=== PATIENT | female | born 1950 | race Caucasian/White ===

== ENCOUNTER 2025-03-18 13:10 | Inpatient (IN) | payer BC, MEDICARE ==
[~2025-03-18] VITALS: Ht 175.3 cm; Wt 73.0 kg
[2025-03-18] MEDS: INSULIN LISPRO 100 UNIT/ML INSULN.PEN MULTI-DOSE SQ SCH (00:23)
[2025-03-18] MEDS: insulin glargine (Lantus) pen - multi-dose SQ SCH (00:23)
--- NOTE | 2025-03-18 13:31 | ELECTROCARDIOGRAPH REPORT ---
[facility] Test Date: 2025-03-18 Test Time: 13:30:02 Pat Name: HALIMA HARMON Department: [facility]ER Patient ID: [facility]-[id number] Room: Gender: F [employer] Director: : 1950 Requested By: CORI CHAMBERS Order Number: [id number] Reading MD: Measurements Intervals [place] Rate: 103 P: 0 VT: 0 QRS: 54 QRSD: 95 T: 5 QT: 335 QTc: 439 Interpretive Statements Atrial fibrillation Probable left ventricular hypertrophy Anterior Q waves, possibly due to LVH Borderline T abnormalities, inferior leads Please click the below link to view image of tracing.
--- NOTE | 2025-03-18 13:40 | Physician Documentation ---
History of Present Illness ~ Chief Complaint: Weakness Stated Complaint: GENERAL ILLNESS Time Seen by MD: 13:39 OK to notify your PCP?: Yes Mode of Arrival: EMS HPI 74-year-old female presents to the emergency department per EMS due to shortness of breath, weakness, leg swelling, nausea. She reports that she has a new diagnosis of congestive heart failure as of this October established at [facility]. She reports that she had a pacemaker placed at that time, and has had hospitalization, rehab stay, ER visits since that time. She reports that her most recent visit to [facility] was just last night. Medication Reconciliation Allergies: Coded Allergies: doxycycline (Verified Allergy, Severe, abdominal pain, 03/18/25) amoxicillin (Verified Allergy, Mild, abdominal pain, 03/18/25) meperidine (Verified Allergy, Mild, confusion, 03/18/25) metronidazole (Verified Allergy, Mild, hives, 03/18/25) Review of Systems ROS As stated above in the HPI, otherwise all systems are reviewed and negative. Physical Exam Vital Signs: Temperature: 98.6, Source: Temporal, Heart Rate: 102, Respiratory Rate: 20, BP: 120/85, Pulse Oximetry: 98, Weight: 76.200 Oxygen Flow Rate: 0 Physical Exam General: Alert, no apparent distress. HEENT: PERRL, EOMI, no injection, dry mucous membranes. Neck: Full range of motion. Respiratory: Lungs clear, no respiratory distress. Dim bases. Chest: No accessory muscle use. Cardiovascular: Regularly irregular rate and rhythm, no murmurs. Gastrointestinal: Soft, nontender, nondistended. Bowels sounds present. Extremities: Normal range of motion, no deformity. Neurologic: Oriented x4. Psychiatric: Normal mood and affect. Skin: Normal color, warm and dry. 2+ edema BLE with some superficial weeping areas. Progress Progress Note 1453: RN reports patient has elevated troponin of 82. 1512: Hospitalist agrees to admit patient. Results/Orders Results/Orders Orders - ARLENE LAKHANI GTA Urinalysis, Cult If Indicated (03/18/25 13:39) Chest,Single View (03/18/25 13:58) Page Hospitalist (03/18/25 ) Completed Orders - ARLENE LAKHANI GTA Cbc/Diff (03/18/25 13:39) CMP (03/18/25 13:39) Troponin (Single) (03/18/25 13:53) PBNP (03/18/25 13:53) Chest,Single View (03/18/25 13:58) Furosemide 40mg Inj (Lasix Inj) (03/18/25 14:55) Vital Signs 03/18/25 03/18/25 13:24 13:36 Temp 98.6 Pulse 102 Resp 20 20 B/P (MAP) 120/85 Pulse Ox 98 O2 Flow Rate 0 Laboratory Tests Test 03/18/25 14:12 White Blood Count 5.5 Red Blood Count 4.31 Hemoglobin 11.4 L Hematocrit 36.5 Mean Corpuscular Volume 84.7 Mean Corpuscular Hemoglobin 26.5 L Mean Corpuscular Hemoglobin Concent 31.3 L Red Cell Distribution Width 16.8 H Platelet Count 313 Mean Platelet Volume 8.2 Neutrophils (%) (Auto) 79.5 H Lymphocytes (%) (Auto) 8.1 L Monocytes (%) (Auto) 11.9 Eosinophils (%) (Auto) 0 Basophils (%) (Auto) 0.5 Neutrophils # (Auto) 4.4 Lymphocytes # (Auto) 0.4 L Monocytes # (Auto) 0.7 Eosinophils # (Auto) 0.0 Basophils # (Auto) 0.0 CBC Comment Sodium Level 136 Potassium Level 4.4 Chloride Level 96 L Carbon Dioxide Level 29.1 Anion Gap 11 Blood Urea Nitrogen 24 H Creatinine 1.53 H Estimated GFR/1.73 m2 33 BUN/Creatinine Ratio 15.7 Glucose Level 168 H Calcium Level 8.4 L Total Bilirubin 1.0 Aspartate Amino Transf (AST/SGOT) 42 H Alanine Aminotransferase (ALT/SGPT) 42 Alkaline Phosphatase 109 Troponin I High Sensitivity 82 *H Pro-B-Type Natriuretic Peptide > 45114 H Total Protein 7.2 Albumin 3.2 L Globulin 4.0 Albumin/Globulin Ratio 0.8 L Chemistry Comments EKG/XRAY/CT/US/VASC/MRI EKG : Additional Comment 1330: EKG interpreted to show afib rate of [address] segment elevation. QTC 439 ms. Chest X-Ray : Additional Comments [facility] [address], [place], [place] - [address] DIAGNOSTIC RADIOLOGY Patient: HALIMA HARMON Medical Record: [id number] [place] : 1950, Age: 74 Sex: Female Location: ER Patient Status: [facility] ER Service Date/Time: 03/18/25/ 1358 Ordering Physician: ARLENE LAKHANI NP Exam: CHEST,SINGLE VIEW CHEST RADIOGRAPH Indication: dyspnea Technique: Single frontal view of the chest was obtained COMPARISON: None FINDINGS: Lines and Tubes: Left pacemaker/ AICD with leads overlying the right atrium and right ventricle. Lungs: Pulmonary vasculature is mildly prominent. No focal consolidative opacity is seen. Pleura: No effusion. No pneumothorax. Cardiomediastinal contours: Cardiac silhouette is enlarged. Bones: Osseous degenerative changes. IMPRESSION: Cardiomegaly with mild pulmonary vascular congestion. No focal consolidation. Electronically Signed by:BLANCA PATEL MD Date & Time: 03/18/25 1409 Dictated by: BLANCA PATEL MD Dictation date and time: 03/18/25 1353 Primary Care Provider: NO PRIMARY CARE PROVIDER cc: ARLENE LAKHANI GTA ~ Medical Decision Making Additional Information This is a 74-year-old female with hx of CHF and afib who presented to the emergency department today reporting generalized weakness, nausea, shortness of breath, peripheral edema. She was found to have an elevated troponin of 82 [place] [address]. EKG showed afib without evidence of acute changes. She was given 40 mg of IV Lasix. Her chest x-ray did also show evidence of fluid volume overload, but no pneumonia. Due to her significant weakness and evidence of congestive heart failure exacerbation, she is appropriate for hospitalization and the hospitalist will be paged to evaluate her for admission. Departure Time of Disposition: 15:13 Disposition: 09 ADMITTED INPATIENT Admitted to Inpatient Unit: yes, to hospitalist Impression: Primary Impression: CHF exacerbation Referrals: NO PRIMARY CARE PROVIDER (PCP) Signature Scribe Signature: no scribe Attestation: The note accurately reflects work and decisions made by me.Arlene Null NP 03/18/25 13:54 ARLENE LAKHANI NP Mar 18, 2025 13:40
--- NOTE | 2025-03-18 14:11 | RADIOLOGY REPORT ---
CHEST RADIOGRAPH Indication: dyspnea Technique: Single frontal view of the chest was obtained COMPARISON: None FINDINGS: Lines and Tubes: Left pacemaker/ AICD with leads overlying the right atrium and right ventricle. Lungs: Pulmonary vasculature is mildly prominent. No focal consolidative opacity is seen. Pleura: No effusion. No pneumothorax. Cardiomediastinal contours: Cardiac silhouette is enlarged. Bones: Osseous degenerative changes. IMPRESSION: Cardiomegaly with mild pulmonary vascular congestion. No focal consolidation.
[2025-03-18 14:30] LABS: BASOPHILS % (AUTO) 0.5 % (0-1); EOSINOPHILS % (AUTO) 0 % (0-6); HEMATOCRIT 36.5 % (35.0-45.0); HEMOGLOBIN 11.4 g/dl (12.0-16.0); LYMPHOCYTES # (AUTO) 0.4 X10'3 (1.1-4.8); LYMPHOCYTES % (AUTO) 8.1 % (21-51); MEAN CORPUSCULAR HEMOGLOBIN 26.5 PG (27.0-31.0); MEAN CORPUSCULAR HGB CONC 31.3 g/dL (33.0-36.5); MEAN CORPUSCULAR VOLUME 84.7 FL (78-98); MEAN PLATELET VOLUME 8.2 FL (7.4-10.4); MONOCYTES # (AUTO) 0.7 X10'3 (0-0.9); MONOCYTES % (AUTO) 11.9 % (2-12); NEUTROPHILS # (AUTO) 4.4 X10'3 (1.8-7.7); NEUTROPHILS % (AUTO) 79.5 % (42-75); PLATELET COUNT 313 X10'3 (140-440); RED BLOOD COUNT 4.31 X10'6 (4.20-5.60); RED CELL DISTRIBUTION WIDTH 16.8 % (11.5-14.5); WHITE BLOOD COUNT 5.5 X10'3 (4.5-11.0)
[2025-03-18 14:43] LABS: ALANINE AMINOTRANSFERASE 42 U/L (12-78); ALBUMIN 3.2 G/DL (3.4-5.0); ALBUMIN/GLOBULIN RATIO 0.8 (1.1-1.5); ALKALINE PHOSPHATASE 109 IU/L (46-116); ANION GAP 11 (8-16); ASPARTATE AMINO TRANSFERASE 42 U/L (10-37); BLOOD UREA NITROGEN 24 MG/DL (7-18); BUN/CREATININE RATIO 15.7 (10.0-20.0); CALCIUM 8.4 MG/DL (8.5-10.1); CHLORIDE 96 MMOL/L (99-107); CREATININE 1.53 MG/DL (0.40-0.90); GLUCOSE 168 MG/DL (70-104); POTASSIUM 4.4 MMOL/L (3.5-5.1); SODIUM 136 MMOL/L (135-145); TOTAL CARBON DIOXIDE 29.1 MMOL/L (24-32); TOTAL PROTEIN 7.2 G/DL (6.4-8.2); eCRCL 33 ML/MIN; eGFR 33 ML/MIN
[2025-03-18 14:51] LABS: PRO BRAIN NATRIURETIC PEPTIDE > 30000 PG/ML (0-450)
[2025-03-18] MEDS ORDERED: magnesium sulf-water 2g/50mL 50 ML IV PRN (15:10)
[2025-03-18] MEDS ORDERED: magnesium Cl slow-release 64mg tablet PO PRN (15:10)
[2025-03-18] MEDS ORDERED: HYDROmorphone inj. 0.5 MG/0.5 ML DISP.SYRIN IV PRN (15:10)
[2025-03-18] MEDS ORDERED: HYDROcodone/acetaminophen 10/325mg tab PO PRN (15:10)
[2025-03-18] MEDS ORDERED: morphine 2 MG/ML inj. syringe IV PRN ×2 (15:10)
[2025-03-18] MEDS ORDERED: potassium Cl 20 mEq SR tablet PO PRN (15:10)
[2025-03-18] MEDS ORDERED: magnesium sulf-water 4G/100mL 100 ML IV PRN (15:10)
[2025-03-18] MEDS ORDERED: potassium Cl 40MEQ/1/2NS 520ml 520 ML IV PRN (15:10)
[2025-03-18] MEDS ORDERED: mag hydrox/Alum hydrox/simeth 30ml oral suspension PO PRN (15:10)
[2025-03-18] MEDS ORDERED: magnesium hydroxide 30ml (MOM) UD suspension PO PRN (15:10)
[2025-03-18] MEDS ORDERED: acetaminophen 325mg tablet PO PRN (15:10)
[2025-03-18] MEDS ORDERED: bisacodyl 10mg suppository rectal RC PRN (15:10)
[2025-03-18] MEDS ORDERED: HYDROcodone/acetaminophen 5mg/325mg tablet PO PRN (15:10)
[2025-03-18] MEDS ORDERED: ondansetron/PF 4mg/2ml inj IV PRN (15:10)
[2025-03-18] MEDS ORDERED: ampicill/sulbac 1.5gm/NS 100ml 100 ML IV SCH (15:20)
[2025-03-18] MEDS: metoprolol tartrate 1mg/ml inj IV SCH (15:20)
[2025-03-18] MEDS: ipratropium/albuterol 3ml nebule NEB SCH (15:20)
[2025-03-18] MEDS: furosemide 40mg/4ml inj IV ONE (15:59)
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
[2025-03-18 16:22] LABS: MAGNESIUM 2.5 MG/DL (1.5-2.4)
[2025-03-18 16:22] LABS: APTT 24 SECONDS (22-32); INR 1.2 INR; PROTHROMBIN TIME 11.7 SECONDS (9.0-12.0)
[2025-03-18] MEDS ORDERED: glucagon, human recombinant 1mg kit SUBCUT PRN (16:45)
[2025-03-18] MEDS ORDERED: dextrose 50%-water 50ml dispensing syringe IV PRN ×2 (16:45)
[2025-03-18] MEDS ORDERED: DEXTROSE 15 GM of carb/4 tabs (each vial/BOTTLE has 4 tablets) PO PRN ×2 (16:45)
[2025-03-18] MEDS ORDERED: LEVO75CA6 PO (17:02)
[2025-03-18] MEDS ORDERED: NAPR-56 PO (17:02)
[2025-03-18] MEDS ORDERED: MAGN250T11 PO (17:02)
[2025-03-18] MEDS ORDERED: SPIR25TA5 PO (17:02)
[2025-03-18] MEDS ORDERED: ASPI-1264 PO (17:02)
[2025-03-18] MEDS ORDERED: FURO-150 PO (17:02)
[2025-03-18] MEDS ORDERED: UBID100C16 PO (17:02)
[2025-03-18] MEDS ORDERED: deltasone PO (17:02)
[2025-03-18] MEDS ORDERED: METO-539 PO (17:02)
[2025-03-18] MEDS ORDERED: AZIT-164 PO (17:02)
[2025-03-18] MEDS ORDERED: VITA0.4T18 (17:02)
[2025-03-18] MEDS ORDERED: BISM-155 PO (17:02)
[2025-03-18] MEDS ORDERED: DIPH25CA83 PO (17:02)
[2025-03-18] MEDS ORDERED: CYCL-394 PO (17:02)
[2025-03-18] MEDS ORDERED: EMPA10TA PO (17:14)
[2025-03-18] MEDS ORDERED: SACU1TAB PO (17:14)
[2025-03-18] MEDS ORDERED: APIX5TAB3 PO (17:14)
[2025-03-18] MEDS ORDERED: CEPH-585 PO (17:14)
[2025-03-18] MEDS: guaiFENesin ER 600mg tablet PO SCH (17:53)
[2025-03-18] MEDS: azithromycin 250mg tablet PO SCH (17:54)
[2025-03-18] MEDS: ceFAZolin/D5W- 1GM premix 50 ML IV SCH (18:16)
[2025-03-18 19:02] LABS: TOTAL PROTEIN,URINE RANDOM 85.6 MG/DL
[2025-03-18 19:03] VITALS: PULSE 63; RESP 15; O2SAT 93
[2025-03-18 19:06] LABS: URINE AMPHETAMINE SCREEN NEGATIVE (Neg); URINE BARBITUATE SCREEN NEGATIVE (Neg); URINE BENZODIAZEPINES SCREEN NEGATIVE (Neg); URINE CANNABINOID SCREEN POSITIVE (Neg); URINE COCAINE SCREEN NEGATIVE (Neg); URINE METHADONE SCREEN NEGATIVE (Neg); URINE OPIATE SCREEN NEGATIVE (Neg); URINE PHENCYCLIDINE SCREEN NEGATIVE (Neg)
[2025-03-18 19:09] VITALS: PULSE 77; RESP 16
[2025-03-18 19:10] LABS: BILIRUBIN,URINE NEGATIVE (Neg); CLARITY,URINE CLEAR (Clear); COLOR,URINE YELLOW (Yellow); GLUCOSE, URINE NEGATIVE (Neg); KETONES,URINE NEGATIVE (Neg); LEUKOCYTE ESTERASE ,URINE NEGATIVE (Neg); NITRITES, URINE NEGATIVE (Neg); OCCULT BLOOD,URINE NEGATIVE (Neg); PROTEIN,URINE 30 mg/dl (Neg); UROBILINOGEN,URINE 0.2 E.U/dL (0.2-1.0)
[2025-03-18 19:19] LABS: UA COLLECTION TYPE CLN CATCH MIDSTREAM
[2025-03-18 19:24] LABS: RBC,URINE NONE SEEN /HPF (0-2); WBC,URINE 0-4 /HPF (0-4)
[2025-03-18 19:25] LABS: BACTERIA,URINE NONE SEEN /HPF (Neg); SQUAMOUS EPITHELIAL CELL,UR FEW /LPF (FEW)
[2025-03-18] MEDS ORDERED: heparin, porcine 5000 units/ml vial SQ SCH (20:00)
[2025-03-18 20:39] LABS: C-REACTIVE PROTEIN 2.46 MG/DL (0.0-0.5)
[2025-03-18 20:58] LABS: UA EOSINOPHILS NO EOS /HPF
[2025-03-18] MEDS ORDERED: iohexol 350MG/ML 100ml bottle IV ONE (21:09)
[2025-03-18 22:00] VITALS: BP 70/45; PULSE 66; RESP 15; TEMP 98.3; O2SAT 96
--- NOTE | 2025-03-18 23:00 | RADIOLOGY REPORT ---
Procedure: CT CTA AORTA DISECTION W/ IV CONTRAST HISTORY: Chest pain, abdominal pain, bilateral upper arm blood pressures discrepancy Comparison Study: None Exam Date:03/18/2025 09:57 PM TECHNIQUE: volumetric data acquisition of abdomen and pelvis was obtained with .6 mm collimation following intra venous administration of intravenous 100 ml of Isovue 370 without any reported adverse effects. 1.5 a nd 3 mm axial images were reconstructed and additional sagittal and coronal images were reformatted. Precontrast and arterial phase imaging were performed. Images were reviewed on [facility] PACS. Postproce ssing was also performed on a Separate workstation. 3D images were performed on a dedicated workstation and reviewed for reporting. Radiation Dose : CT Dose: CTDI volume is 18 mGy. Dose-length product is 1283 mGy*cm FINDINGS: Vascular: The pulmonary trunk measures 3.3 cm with associated mild dilation of the left and right main pulmonar y arteries. Severe calcification of the origin of the left subclavian artery arising from the aortic arch concerning for greater than 50% stenosis. Moderate to severe calcification of the origin of the celiac axis, SMA, and bilateral renal arteries. The LUCY is patent. No evidence of aortic dissection o r aneurysm. Chest: Mild cardiomegaly. Severe calcification of the coronary vessels. Left-sided cardiac device wi th intact leads. Abdomen/pelvis: Limited evaluation due to arterial phase contrast enhancement. Findings suggestive of possible distended gallbladder with pericholecystic free fluid. Mild pneumobilia with scattered foci of air within the gallbladder. Mild free fluid in the pelvis. Moderate diffuse anasarca. IMPRESSION: No evidence of acute aneurysm, dissection, or intramural hematoma. Findings suggestive of pulmonary hypertension. Mild cardiomegaly. Greater than 50% stenosis at the proximal left subclavian artery. Mildly distended gallbladder with adjacent free fluid. There is mild pneumobilia. Consider further ev aluation with ultrasound. END IMPRESSION:
[2025-03-18] MEDS: normal saline 500ml IV soln 500 ML IV SCH (23:54)
[2025-03-19] VITALS (12 sets, daily range): BP systolic 70–154; BP diastolic 37–68; PULSE 58–89; RESP 15–24; TEMP 97–98.2; O2SAT 93–98
[2025-03-19] MEDS: sacubitril/valsartan 24mg-26mg tablet PO SCH (00:03)
[2025-03-19] MEDS: apixaban 2.5mg tablet PO SCH (00:05)
[2025-03-19] MEDS: furosemide 40mg/4ml inj IV SCH (00:05)
[2025-03-19] MEDS: docusate sod 100mg capsule PO SCH (00:06)
[2025-03-19] MEDS: cyclobenzaprine 10mg tablet PO ONE (00:27)
[2025-03-19 05:15] LABS: BASOPHILS % (AUTO) 0.8 % (0-1); EOSINOPHILS % (AUTO) 0.1 % (0-6); HEMATOCRIT 33.5 % (35.0-45.0); HEMOGLOBIN 10.9 g/dl (12.0-16.0); LYMPHOCYTES # (AUTO) 0.6 X10'3 (1.1-4.8); LYMPHOCYTES % (AUTO) 11.6 % (21-51); MEAN CORPUSCULAR HEMOGLOBIN 26.8 PG (27.0-31.0); MEAN CORPUSCULAR HGB CONC 32.4 g/dL (33.0-36.5); MEAN CORPUSCULAR VOLUME 82.6 FL (78-98); MONOCYTES # (AUTO) 0.9 X10'3 (0-0.9); MONOCYTES % (AUTO) 17.4 % (2-12); NEUTROPHILS # (AUTO) 3.4 X10'3 (1.8-7.7); NEUTROPHILS % (AUTO) 70.1 % (42-75); PLATELET COUNT 266 X10'3 (140-440); RED BLOOD COUNT 4.06 X10'6 (4.20-5.60); RED CELL DISTRIBUTION WIDTH 16.9 % (11.5-14.5); WHITE BLOOD COUNT 4.9 X10'3 (4.5-11.0)
[2025-03-19 05:25] LABS: D-DIMER 3.38 MG/L FEU (0-0.50)
[2025-03-19 05:34] LABS: ALANINE AMINOTRANSFERASE 52 U/L (12-78); ALBUMIN 2.8 G/DL (3.4-5.0); ALBUMIN/GLOBULIN RATIO 0.8 (1.1-1.5); ALKALINE PHOSPHATASE 90 IU/L (46-116); ANION GAP 8 (8-16); ASPARTATE AMINO TRANSFERASE 71 U/L (10-37); BILIRUBIN,TOTAL 0.8 MG/DL (0.1-1.0); BLOOD UREA NITROGEN 25 MG/DL (7-18); BUN/CREATININE RATIO 16.9 (10.0-20.0); CALCIUM 8.1 MG/DL (8.5-10.1); CHLORIDE 97 MMOL/L (99-107); CHOL/HDL RATIO 3.5 (0.00-4.99); CHOLESTEROL 123 MG/DL (0-200); CREATININE 1.48 MG/DL (0.40-0.90); GLUCOSE 121 MG/DL (70-104); HDL CHOLESTEROL 35 MG/DL (35-60); LDL CHOLESTEROL 71 MG/DL (50-100); MAGNESIUM 2.3 MG/DL (1.5-2.4); POTASSIUM 3.3 MMOL/L (3.5-5.1); SODIUM 135 MMOL/L (135-145); TOTAL CARBON DIOXIDE 29.7 MMOL/L (24-32); TOTAL PROTEIN 6.4 G/DL (6.4-8.2); TRIGLYCERIDES 93 MG/DL (20-135); eCRCL 34 ML/MIN; eGFR 34 ML/MIN
[2025-03-19 05:54] LABS: NUCLEATED RED BLOOD CELLS 1 /100WBC (0-0); TOTAL CELLS COUNTED 100
[2025-03-19 05:55] LABS: PLATELET ESTIMATE NORMAL
[2025-03-19 05:56] LABS: LARGE PLATELETS MODERATE
[2025-03-19] MEDS: EMPAGLIFLOZIN 10 MG TABLET PO SCH (07:43)
[2025-03-19] MEDS: metoprolol succinate 25mg (24-HOUR) SR. Tablet PO SCH (07:43)
[2025-03-19] MEDS: spironolactone 25 MG tablet PO SCH (07:44)
[2025-03-19] MEDS: potassium Cl 20 mEq SR tablet PO PRN (07:52)
[2025-03-19] MEDS: K and/or MAG REPLACEMENT MC SCH (08:07)
--- NOTE | 2025-03-19 09:22 | RADIOLOGY REPORT ---
INDICATION: ERNESTO TECHNIQUE: Multiple real-time sonographic images of the kidneys and bladder were obtained. COMPARISON: None FINDINGS: The right kidney measures 9.6 cm in length, which is normal in size. There is normal echoge nicity of the right kidney. No hydronephrosis. The left kidney measures 9.5 cm in length, which is normal in size. There is normal echogenicity of t he left kidney. No hydronephrosis. No large intraluminal masses are seen in the bladder. IMPRESSION: 1. Normal sonographic appearance of the kidneys. No hydronephrosis.
--- NOTE | 2025-03-19 11:20 | VASCULAR REPORT ---
Bilateral lower extremity venous duplex Clinical History: Lower extremity edema Comparison: None Technique: Duplex Doppler evaluation of the deep venous systems of both lower extremities from the common femora l veins to the popliteal veins including color Doppler and spectral/pulsed waveform analysis was perf ormed. Findings: RIGHT SIDE: The common femoral vein demonstrates appropriate compressibility and waveform variability. There is compressibility/patency of the great saphenous vein at the proximal thigh. The femoral vein demonstrates appropriate compressibility and waveform variability. The deep femoral vein demonstrates appropriate compressibility and waveform variability. The popliteal vein demonstrates appropriate compressibility and waveform variability. There is normal compressibility at the tibioperoneal trunk. LEFT SIDE: The common femoral vein demonstrates appropriate compressibility and waveform variability. There is compressibility/patency of the great saphenous vein at the proximal thigh. The femoral vein demonstrates appropriate compressibility and waveform variability. The deep femoral vein demonstrates appropriate compressibility and waveform variability. The popliteal vein demonstrates appropriate compressibility and waveform variability. There is normal compressibility at the tibioperoneal trunk. Peroneal veins and posterior tibial veins are suboptimally visualized. Impression: No right or left femoropopliteal venous thrombosis.
[2025-03-19] MEDS: predniSONE 20 mg tablet PO SCH (12:59)
--- NOTE | 2025-03-19 17:47 | CARDIOLOGY REPORT ---
APPROVED REPORT EXAM: Comprehensive 2D, Doppler, and color-flow Echocardiogram. Patient Location: FT Blood Pressure: 100/61 mmHg Heart Rate: 79-95 bpm Rhythm: ATRIAL FIBRILLATION Indications CONGESTIVE HEART FAILURE ELEVATED PROBNP (>30,000) HS TROPONIN 82 ATRIAL FIBRILLATION HFrEF - 30% PACEMAKER 11/2024 COPD Quality Assurance Qa Lab Technician: Niraj Van, Previous echo: none 2D Dimensions RVDd 4.5 cm LA Diam7.8 cm IVSd 0.9 (0.7-1.1cm) LVDd 5.4 cm PWd 1.1 (0.7-1.1cm) IVSs 1.1 (0.8-1.2cm) LVDs 4.5 (2.5-4.0cm) PWs 1.7 (0.8-1.2cm) LVOT Diameter 2.14 (1.8-2.4cm) LVEF(%) 22.5 (>50%) IVC 26.65 mmFS (%) 15.5 % SV 45.3 ml CO 3.5 L/min M-Mode Dimensions Left Atrium(MM) 5.02 (2.5-4.0cm) Aortic Root 2.78 (2.2-3.7cm) Aortic Cusp Exc 1.79 (1.5-2.0cm) Biplane 2D LA Volumes LA ESV Index 60.29 mL/m2 Aortic Valve AoV Peak Lorenzo. 123.3 cm/s AoV VTI 17.7 cm AO Peak GR. 6.1 mmHg AO Mean GR. 3 mmHg LVOT VTI 10.92 cm LVOT Peak Lorenzo. 77.9 cm/s RAHUL(VTI)/BSA 2.22 cm2/m2 RAHUL (VTI) 2.22 cm2 Mitral Valve MV Peak Gr. 4 mmHg MV PHT 44 ms MVA (PHT) 5.00 cm2 MV SDui689.0 cm/s Tricuspid Valve TR P. Velocity 369 cm/s RAP ESTIMATE 10 mmHg TR Peak Gr. 54 mmHg RVSP 64 mmHg LEFT VENTRICLE Normal LV size and wall thickness. Overall systolic function is severely reduced. Multisegmental wall motion abnormalities. LVEF is 20-25%. RIGHT VENTRICLE RV is moderately dilated with reduced systolic function. RVSP is estimated at 64 mmHg. Pacemaker wire in right heart. ATRIA Left atrium is severely dilated. Right atrium is severely dilated. AORTIC VALVE Trileaflet AV appears mildly sclerotic without stenosis. Trace insufficiency. MITRAL VALVE Moderate MV annular calcification without stenosis. Mild regurgitation. TRICUSPID VALVE TV appears structurally normal with moderate regurgitation. PULMONIC VALVE Normal PV without stenosis, physiologic insufficiency. GREAT VESSELS The aortic root is normal in size. IVC is dilated and collapses less than 50% with inspiration. PERICARDIUM Normal pericardium. No effusion. Other Information Study Quality: Adequate Conclusion Normal LV size and wall thickness. Overall systolic function is severely reduced. Multisegmental wall motion abnormalities. LVEF is 20-25%. RV is moderately dilated with reduced systolic function. RVSP is estimated at 64 mmHg. Pacemaker wire in right heart. Left atrium is severely dilated. Right atrium is severely dilated. Trileaflet AV appears mildly sclerotic without stenosis. Trace insufficiency. Moderate MV annular calcification without stenosis. Mild regurgitation. TV appears structurally normal with moderate regurgitation. Normal pericardium. No effusion.
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
--- NOTE | 2025-03-19 19:55 | PROGRESS NOTE- Residence ---
Progress Note - Resident Providers to CC Resident Creating Document: CHELYTISH CHAUDHARY, ADRIANNA ~ Antibiotic Timeout Antibiotic Ordered?: Yes Subjective Patient was seen and examined the bedside. Patient has refused her breathing treatments and is very noncompliant with her medications being not able to afford and also not motivated to take medications regularly. Started on steroid. Discontinued Entresto and started on Jardiance by cardiology recommendations. Objective Vital Signs Date Time Temp Pulse Resp B/P (MAP) Pulse Ox O2 Delivery O2 Flow Rate FiO2 03/19/25 15:00 97.0 62 22 154/68 (96) 93 Room Air 03/19/25 12:36 0 21 Result Diagram: 03/19/25 0451 03/19/25 0451 General: Alert, awake and oriented no apparent distress. HEENT: PERRL, EOMI, no injection, dry mucous membranes. Neck: Full range of motion. Respiratory: Bilateral crackles heard on examination, severe wheezing, decreased air entry Chest: No accessory muscle use. Cardiovascular: irregular rate and rhythm, no murmurs. Gastrointestinal: Soft, nontender, nondistended. Bowels sounds present. Extremities: Normal range of motion, no deformity. Neurologic: Oriented x4. Psychiatric: Anxious mood and affect. Skin: Reddish discoloration of bilateral feet, warm and dry. 2+ edema BLE with some superficial weeping areas covered with Band-Aids. Coagulation Studies Laboratory Tests Test 03/18/25 16:01 03/19/25 04:51 Prothrombin Time 11.7 SECONDS (9.0-12.0) INR International Normalized Ratio 1.2 INR Activated Partial Thromboplast Time 24 SECONDS (22-32) Coagulation Comments D-Dimer 3.38 MG/L FEU (0-0.50) H D-Dimer Comment Assessment Assessment This is a 74-year-old female with history of CHFrEF, atrial fibrillation s/p ICD placement, CKD, COPD, celiac disease presents to the ED after being recently discharged from [facility] with a chief complaint of weakness and shortness of breath with exertion. She also has orthopnea, PND, cough, shortness of breath with minimal exertion and edema in the legs. She also gets chest pains never then and her last episode of chest pain was three days ago. She also has palpitations but denies any syncopal episodes, fever. Patient mentions that she was diagnosed with heart failure in October of this year and was started on Lasix and other heart failure medications because his her ejection fraction was only 30%. She was also prescribed compression stockings then. Later in November she underwent pacemaker placement. She mentions that she has been not fully compliant with her medications because Lasix makes her dizzy and Eliquis makes her bleed easily. She used to follow Dr. eagle who was her industrial insulator for about two months after which she lost follow up due to insurance issues. She does not have a primary care physician. She lives in [place] in [facility] and is currently homeless but sometimes lives in her girlfriend's property. Plan Plan Acute on chronic CHF exacerbation with reduced ejection fraction Type 2 FL secondary to above Lactic acidosis, resolved [place] [address]. One dose of Lasix IV 40 mg given in the ED. Chest x-ray shows cardiomegaly with pulmonary congestion. Clinically patient house bilateral lower extremity edema and decreased air entry in bilateral lung bahena, crackles. EKG ultrasound borderline T-wave changes and Q-waves. Continue trending troponins. Check lipid panel and A1c. Echocardiogram ordered. Follow up Started on Lasix 40 mg b.i.d. held due to lactic acidosis and dehydration, continue home medications spironolactone 25 mg p.o. daily, metoprolol 25 mg p.o. daily, Jardiance 10 mg daily. Not starting on YU inhibitors to prevent hypotension. Heart healthy and sodium restricted diet. Lactic acidosis is likely secondary to hypoxia and cellulitis. Lactic acid normalized with IV fluids. 03/19/2025:Discontinued Entresto and started on Jardiance based on cardiology recommendations. COPD exacerbation History of long-term tobacco use Patient has bilateral wheezing on examination. She also has cough with sputum production. Started on DuoNebs q.4 scheduled on duo nebs q.2h p.r.n. three day course of azithromycin, day one. Patient is also on cefazolin for cellulitis which will also cover possible lung infection. Mucinex 1.2 g b.i.d. started on prednisone 40 mg once daily Atrial fibrillation with RVR EKG shows atrial fibrillation with heart rate in 100-110 bpm. Check TSH. Received 5 mg of IV metoprolol t.i.d. Q 15 minutes part Started on home medication metoprolol 25 mg p.o. daily. Started on Eliquis 5 mg b.i.d. however patient refused due to patient's propensity to bleed easily. 03/19/2025: Tele monitoring shows paced rhythm, atrial flutter underlying rhythm Left subclavian artery stenosis Patient has low blood pressure in her left arm and due to differential blood pressure CTA was done to rule out aortic dissection. Aortic dissection was ruled out but left subclavian artery shows greater than 50% stenosis. Blood pressures need to be checked only in the right arm for accurate measurements. CKD, unknown baseline Creatinine is 1.5, patient mentions that she was told she has kidney problems prior. Monitor kidney function slowly as the patient is on multiple medications such as Entresto, Jardiance, spironolactone which may increase the potassium and worsening kidney function. Hold the above medications if kidney function worsens Cellulitis Started on Ancef Q eight scheduled. New onset diabetes A1c 6.5. Blood sugars 168. Started on hyperglycemia protocol with low-dose supplemental insulin History of hypothyroidism History of celiac disease Restart home medication levothyroxine after med rec. Consult nutrition for gluten free diet Code Status: Full code DVT Prophylaxis: Eliquis Analgesia/Sedation: Tylenol p.r.n. Lines/Tubes: PIV Gi Prophylaxis: None Nutrition: Heart healthy, sodium restricted, gluten free diet PT: Yes Prognosis: Guarded Disposition: Continue care in PCU Tish Chaudhary MD Internal Medicine Resident PGY-1 Date of Service: Mar 19, 2025 Billing Provider: FRANCY CANO MD Common Visit Codes: [id number] INP/OBS CARE(HIGH) TISH MO, RES Mar 19, 2025 19:55 FRANCY CANO MD Mar 23, 2025 00:11
[2025-03-19] MEDS: apixaban 5mg tablet PO SCH (20:19)
[2025-03-20] VITALS (17 sets, daily range): BP systolic 110–150; BP diastolic 38–68; PULSE 63–88; RESP 16–25; TEMP 97.2–98.6; O2SAT 96–100
[2025-03-20 06:54] LABS: BASOPHILS % (AUTO) 0.2 % (0-1); EOSINOPHILS % (AUTO) 0 % (0-6); HEMATOCRIT 34.3 % (35.0-45.0); HEMOGLOBIN 10.9 g/dl (12.0-16.0); LYMPHOCYTES # (AUTO) 0.5 X10'3 (1.1-4.8); LYMPHOCYTES % (AUTO) 13.2 % (21-51); MEAN CORPUSCULAR HEMOGLOBIN 26.7 PG (27.0-31.0); MEAN CORPUSCULAR HGB CONC 31.8 g/dL (33.0-36.5); MONOCYTES # (AUTO) 0.6 X10'3 (0-0.9); MONOCYTES % (AUTO) 13.8 % (2-12); NEUTROPHILS % (AUTO) 72.8 % (42-75); PLATELET COUNT 254 X10'3 (140-440); RED BLOOD COUNT 4.08 X10'6 (4.20-5.60); RED CELL DISTRIBUTION WIDTH 16.7 % (11.5-14.5); WHITE BLOOD COUNT 4.1 X10'3 (4.5-11.0)
[2025-03-20 07:11] LABS: ALANINE AMINOTRANSFERASE 47 U/L (12-78); ALBUMIN 2.9 G/DL (3.4-5.0); ALBUMIN/GLOBULIN RATIO 0.8 (1.1-1.5); ALKALINE PHOSPHATASE 88 IU/L (46-116); ANION GAP 11 (8-16); ASPARTATE AMINO TRANSFERASE 64 U/L (10-37); BILIRUBIN,TOTAL 0.5 MG/DL (0.1-1.0); BLOOD UREA NITROGEN 29 MG/DL (7-18); BUN/CREATININE RATIO 17.9 (10.0-20.0); CALCIUM 8.3 MG/DL (8.5-10.1); CHLORIDE 96 MMOL/L (99-107); CREATININE 1.62 MG/DL (0.40-0.90); GLUCOSE 166 MG/DL (70-104); MAGNESIUM 2.6 MG/DL (1.5-2.4); POTASSIUM 4.4 MMOL/L (3.5-5.1); SODIUM 134 MMOL/L (135-145); TOTAL CARBON DIOXIDE 27.1 MMOL/L (24-32); TOTAL PROTEIN 6.5 G/DL (6.4-8.2); eCRCL 31 ML/MIN; eGFR 31 ML/MIN
[2025-03-20] MEDS: JUVEN Smoothie Arginine/Glut./Ca2+Bmb (Juven 19.3pkt) 240ml cup PO SCH (07:30)
[2025-03-20] MEDS: aspirin 81mg, enteric-coated 1 TAB TABLET.DR PO SCH (08:00)
[2025-03-20] MEDS: EMPAGLIFLOZIN 10 MG TABLET PO SCH (08:00)
[2025-03-20] MEDS: atorvastatin 20mg tablet PO SCH (08:00)
[2025-03-20] MEDS: normal saline 1000ml 1,000 ML IV SCH (08:10)
[2025-03-20] MEDS: losartan 25mg tablet PO SCH (09:15)
[2025-03-20] MEDS ORDERED: benzonatate 100mg capsule PO PRN (10:15)
--- NOTE | 2025-03-20 18:27 | PROGRESS NOTE- Residence ---
Progress Note - Resident Providers to CC Resident Creating Document: CHELYTISH CHAUDHARY, RES ~ Antibiotic Timeout Antibiotic Ordered?: Yes Subjective Patient was seen and examined the bedside. Patient continues to have wheezing. Discussed with case management about the requirement of LifeVest. Case management had made the arrangements. Patient agrees to try LifeVest. She is also noncompliant with the breathing treatments but received a few. Patient also refused physical therapy evaluation. Objective Vital Signs Date Time Temp Pulse Resp B/P (MAP) Pulse Ox O2 Delivery O2 Flow Rate FiO2 03/20/25 15:29 97.4 70 18 144/53 (83) 96 Room Air 03/20/25 15:08 0.0 03/20/25 15:03 21 Result Diagram: 03/20/25 0632 03/20/25 0621 General: Alert, awake and oriented no apparent distress. HEENT: PERRL, EOMI, no injection, dry mucous membranes. Neck: Full range of motion. Respiratory: Bilateral crackles heard on examination, severe wheezing, decreased air entry Chest: No accessory muscle use. Cardiovascular: irregular rate and rhythm, no murmurs. Gastrointestinal: Soft, nontender, nondistended. Bowels sounds present. Extremities: Normal range of motion, no deformity. Neurologic: Oriented x4. Psychiatric: Anxious mood and affect. Skin: Reddish discoloration of bilateral feet, warm and dry. 2+ edema BLE with some superficial weeping areas covered with Band-Aids. Coagulation Studies Laboratory Tests Test 03/18/25 16:01 03/19/25 04:51 Prothrombin Time 11.7 SECONDS (9.0-12.0) INR International Normalized Ratio 1.2 INR Activated Partial Thromboplast Time 24 SECONDS (22-32) Coagulation Comments D-Dimer 3.38 MG/L FEU (0-0.50) H D-Dimer Comment Assessment Assessment This is a 74-year-old female with history of CHFrEF, atrial fibrillation s/p ICD placement, CKD, COPD, celiac disease presents to the ED after being recently discharged from [facility] with a chief complaint of weakness and shortness of breath with exertion. She also has orthopnea, PND, cough, shortness of breath with minimal exertion and edema in the legs. She also gets chest pains never then and her last episode of chest pain was three days ago. She also has palpitations but denies any syncopal episodes, fever. Patient mentions that she was diagnosed with heart failure in October of this year and was started on Lasix and other heart failure medications because his her ejection fraction was only 30%. She was also prescribed compression stockings then. Later in November she underwent pacemaker placement. She mentions that she has been not fully compliant with her medications because Lasix makes her dizzy and Eliquis makes her bleed easily. She used to follow Dr. eagle who was her stna for about two months after which she lost follow up due to insurance issues. She does not have a primary care physician. She lives in [place] in [facility] and is currently homeless but sometimes lives in her girlfriend's property. Plan Plan Acute on chronic CHF exacerbation with reduced ejection fraction Type 2 DE secondary to above Lactic acidosis, resolved [place] [address]. One dose of Lasix IV 40 mg given in the ED. Chest x-ray shows cardiomegaly with pulmonary congestion. Clinically patient house bilateral lower extremity edema and decreased air entry in bilateral lung bahena, crackles. EKG ultrasound borderline T-wave changes and Q-waves. Continue trending troponins. Check lipid panel and A1c. Echocardiogram ordered. Follow up Started on Lasix 40 mg b.i.d. which has been held now due to lactic acidosis and dehydration, continue home medications spironolactone 25 mg p.o. daily, metoprolol 25 mg p.o. daily, Jardiance 10 mg daily. Not starting on YU inhibitors to prevent hypotension. Heart healthy and sodium restricted diet. Lactic acidosis is likely secondary to hypoxia and cellulitis. Lactic acid normalized with IV fluids. 03/19/2025:Discontinued Entresto and started on Jardiance based on cardiology recommendations. 03/20/2025: Currently on IV fluids NS at the rate of 50 mL/hour for ERNESTO. Missed a few breathing treatments but got a few breathing treatments. She is agreeable to LifeVest. COPD exacerbation History of long-term tobacco use Patient has bilateral wheezing on examination. She also has cough with sputum production. Started on DuoNebs q.4 scheduled on duo nebs q.2h p.r.n. three day course of azithromycin, day one. Patient is also on cefazolin for cellulitis which will also cover possible lung infection. Mucinex 1.2 g b.i.d. started on prednisone 40 mg once daily Atrial fibrillation with RVR EKG shows atrial fibrillation with heart rate in 100-110 bpm. Check TSH. Received 5 mg of IV metoprolol t.i.d. Q 15 minutes part Started on home medication metoprolol 25 mg p.o. daily. Started on Eliquis 5 mg b.i.d. however patient refused due to patient's propensity to bleed easily. 03/19/2025: Tele monitoring shows paced rhythm, atrial flutter underlying rhythm Left subclavian artery stenosis Patient has low blood pressure in her left arm and due to differential blood pressure CTA was done to rule out aortic dissection. Aortic dissection was ruled out but left subclavian artery shows greater than 50% stenosis. Blood pressures need to be checked only in the right arm for accurate measurements. CKD, unknown baseline Creatinine is 1.5, patient mentions that she was told she has kidney problems prior. Monitor kidney function slowly as the patient is on multiple medications such as Entresto, Jardiance, spironolactone which may increase the potassium and worsening kidney function. Hold the above medications if kidney function worsens Cellulitis Started on Ancef Q eight scheduled. New onset diabetes A1c 6.5. Blood sugars 168. Started on hyperglycemia protocol with low-dose supplemental insulin History of hypothyroidism History of celiac disease Restart home medication levothyroxine after med rec. Consult nutrition for gluten free diet Code Status: Full code DVT Prophylaxis: Eliquis Analgesia/Sedation: Tylenol p.r.n. Lines/Tubes: PIV Gi Prophylaxis: None Nutrition: Heart healthy, sodium restricted, gluten free diet PT: Yes Prognosis: Guarded Disposition: Continue care in PCU. Anticipated discharge tomorrow. Tish Chaudhary MD Internal Medicine Resident PGY-1 Date of Service: Mar 20, 2025 Billing Provider: FRANCY CANO MD Common Visit Codes: [id number] INP/OBS CARE(HIGH) TISH MO, RES Mar 20, 2025 18:27 FRANCY CANO MD Mar 23, 2025 00:11
[2025-03-21] VITALS (11 sets, daily range): BP systolic 97–122; BP diastolic 58; PULSE 61–82; RESP 15–20; TEMP 98.6; O2SAT 96–99
[2025-03-21] MEDS: calcium carbonate 500mg chew tablet PO PRN (01:54)
[2025-03-21] MEDS: ipratropium/albuterol 3ml nebule NEB PRN (04:28)
[2025-03-21 10:17] LABS: BASOPHILS % (AUTO) 0.3 % (0-1); EOSINOPHILS % (AUTO) 0 % (0-6); HEMATOCRIT 34.6 % (35.0-45.0); LYMPHOCYTES # (AUTO) 0.4 X10'3 (1.1-4.8); LYMPHOCYTES % (AUTO) 7.6 % (21-51); MEAN CORPUSCULAR HEMOGLOBIN 26.5 PG (27.0-31.0); MEAN CORPUSCULAR HGB CONC 31.9 g/dL (33.0-36.5); MEAN CORPUSCULAR VOLUME 82.9 FL (78-98); MEAN PLATELET VOLUME 8.4 FL (7.4-10.4); MONOCYTES # (AUTO) 0.6 X10'3 (0-0.9); MONOCYTES % (AUTO) 10.8 % (2-12); NEUTROPHILS # (AUTO) 4.6 X10'3 (1.8-7.7); NEUTROPHILS % (AUTO) 81.3 % (42-75); PLATELET COUNT 278 X10'3 (140-440); RED BLOOD COUNT 4.17 X10'6 (4.20-5.60); RED CELL DISTRIBUTION WIDTH 16.9 % (11.5-14.5); WHITE BLOOD COUNT 5.7 X10'3 (4.5-11.0)
[2025-03-21 10:33] LABS: ALANINE AMINOTRANSFERASE 36 U/L (12-78); ALBUMIN 2.9 G/DL (3.4-5.0); ALBUMIN/GLOBULIN RATIO 0.8 (1.1-1.5); ALKALINE PHOSPHATASE 89 IU/L (46-116); ANION GAP 10 (8-16); ASPARTATE AMINO TRANSFERASE 57 U/L (10-37); BILIRUBIN,TOTAL 0.5 MG/DL (0.1-1.0); BLOOD UREA NITROGEN 39 MG/DL (7-18); BUN/CREATININE RATIO 24.8 (10.0-20.0); CALCIUM 8.9 MG/DL (8.5-10.1); CHLORIDE 98 MMOL/L (99-107); CREATININE 1.57 MG/DL (0.40-0.90); FREE T4 (FREE THYROXINE) 1.08 NG/DL (0.73-1.40); GLUCOSE 144 MG/DL (70-104); MAGNESIUM 2.7 MG/DL (1.5-2.4); POTASSIUM 4.2 MMOL/L (3.5-5.1); SODIUM 137 MMOL/L (135-145); THYROID STIMULATING HORMONE 2.31 ulU/ml (0.34-4.50); TOTAL CARBON DIOXIDE 29.1 MMOL/L (24-32); TOTAL PROTEIN 6.5 G/DL (6.4-8.2); eCRCL 32 ML/MIN; eGFR 32 ML/MIN
[2025-03-21] MEDS: ceFAZolin/D5W- 1GM premix 50 ML IV SCH (13:01)
[2025-03-21] MEDS ORDERED: LOSA50TA64 PO (14:05)
[2025-03-21] MEDS ORDERED: ALBU2.5V7 NEB (14:05)
[2025-03-21] MEDS ORDERED: FLUT1AER INH (14:05)
--- NOTE | 2025-03-21 15:45 | DISCHARGE SUMMARY-Residence ---
Discharge Summary Providers to CC Resident Creating Document: CHELYTISH JET, RES ~ Discharge Summary Admission Diagnosis: Weakness Hospital Course DATE OF ADMISSION: 03/18/2025 DATE OF DISCHARGE: 03/20/2025 Discharge Diagnosis\Comment: Acute on chronic CHF exacerbation with severely reduced ejection fraction Type 2 [place] secondary to above Lactic acidosis, resolved Acute COPD exacerbation History of long-term tobacco use Atrial fibrillation with RVR s/p pacemaker placement Left subclavian artery stenosis CKD, unknown baseline Cellulitis New onset diabetes History of hypothyroidism History of celiac disease Operations\Procedures: None Consultants: Dr. White Complications: None Condition on DC: Stable New Medications: Albuterol Sulfate (Albuterol Sulfate) 2.5 Mg/3 Ml Vial.neb 1 VIAL NEB Q4HPRN PRN for wheezing, #150 ML 0 Refills Fluticasone/Vilanterol (Breo Ellipta 100-25 Mcg INH) 100 Mcg-25 Mcg/Dose Aer.pow.ba 1 PUFFS INH DAILY for 30 Days, #1 EA 0 Refills Losartan Potassium (Losartan Potassium) 50 Mg Tablet 50 MG PO DAILY for 30 Days, #60 TAB Continued Medications: Aspirin* (Aspirin*) 325 Mg Tablet 1 TAB PO DAILY PRN for chest pain for 30 Days, #30 TAB Azithromycin (Zithromax) 250 Mg Tablet 1 TAB PO DAILY, #5 TAB Bismuth Subsalicylate (Bismuth Subsalicylate) 262 Mg Tab.chew 2 TAB PO Q6H for 14 Days, #112 TAB 0 Refills Cephalexin*Monohydrate* (Keflex*) 500 Mg Capsule 1 CAP PO Q12H for 10 Days, #20 CAP Cyclobenzaprine HCl (Cyclobenzaprine HCl) 10 Mg Tablet 1 TAB PO HS for muscle spasms for 30 Days, #30 TAB [deltasone] () 20 MEQ PO DAILY PRN for cough for 4 Days Diphenhydramine Hcl (Benadryl) 25 Mg Capsule 1 CAP PO HS for 30 Days, #30 CAP 0 Refills Empagliflozin (Jardiance) 10 Mg Tablet 1 TAB PO DAILY for 30 Days, #30 TAB 0 Refills Furosemide* (Lasix*) 20 Mg Tablet 1 TAB PO DAILY for 30 Days, #30 TAB Levothyroxine Sodium (Levothyroxine) 75 Mcg Capsule 1 TAB PO DAILY for 30 Days, #30 CAP 0 Refills Magnesium Oxide (Magnesium) 250 Mg Tablet 1 TAB PO DAILY for 30 Days, #30 TAB 0 Refills Metoprolol Succinate* (Toprol Xl*) 25 Mg Tab.sr.24h 1 TAB PO DAILY for 30 Days, #30 TAB Naproxen (Naproxen) 500 Mg Tablet 1 TAB PO Q12H, #20 TAB Spironolactone (Spironolactone) 25 Mg Tablet 0.5 TAB PO DAILY for 30 Days, #30 TAB 0 Refills Ubidecarenone (Coq-10) 100 Mg Capsule 100 MG PO, CAP Vitamin B Complex/Folic Acid (Super B Maxi Complex Caplet) 0.4 Mg Tablet Discontinued Medications: Sacubitril/Valsartan (Entresto 24 mg-26 mg Tablet) 24 Mg-26 Mg Tablet 1 TAB PO Q12H for 30 Days, #60 TAB 0 Refills Discharge Summary: History of present illness: This is a 74-year-old female with history of CHFrEF, atrial fibrillation s/p ICD placement, CKD, COPD, celiac disease presents to the ED after being recently discharged from [facility] with a chief complaint of weakness and s hortness of breath with exertion. She also has orthopnea, PND, cough, shortness of breath with minimal exertion and edema in the legs. She also gets chest pains never then and her last episode of chest pain was three days ago. She also has palpitations but denies any syncopal episodes, fever. Patient mentions that she was diagnosed with heart failure in October of this year and was started on Lasix and other heart failure medications because his her ejection fraction was only 30%. She was also prescribed compression stockings then. Later in November she underwent pacemaker placement. She mentions that she has been not fully compliant with her medications because Lasix makes her dizzy and Eliquis makes her bleed easily. She used to follow Dr. eagle who was her corrosion control fitter for about two months after which she lost follow up due to insurance issues. She does not have a primary care physician. She lives in [place] in [place] and is currently homeless but sometimes lives in her girlfriend's property. Hospital course: Acute on chronic CHF exacerbation with reduced ejection fraction. Type 2 [place] secondary to above. Lactic acidosis, resolved [place] [address]. One dose of Lasix IV 40 mg given in the ED. Chest x-ray shows cardiomegaly with pulmonary congestion. Clinically patient house bilateral lower extremity edema and decreased air entry in bilateral lung bahena, crackles. EKG ultrasound borderline T-wave changes and Q- waves. Troponins minimally elevated, down trending. Started on Lasix 40 mg b.i.d. which has been held now due to lactic acidosis and dehydration, continued home medications spironolactone 25 mg p.o. daily, metoprolol 25 mg p.o. daily, Jardiance 10 mg daily. Heart healthy and sodium restricted diet. Lactic acidosis is likely secondary to hypoxia and cellulitis. Lactic acid normalized with IV fluids. Discontinued Entresto and started on Jardiance based on cardiology recommendations. Missed a few breathing treatments but got a few breathing treatments. She is agreeable to LifeVest. COPD exacerbation. History of long-term tobacco use. Patient has bilateral wheezing on examination. She also has cough with sputum production. Started on DuoNebs q.4 scheduled on duo nebs q.2h p.r.n. three day course of azithromycin. Patient is also on cefazolin for cellulitis which will also cover possible lung infection. Mucinex 1.2 g b.i.d., started on prednisone 40 mg once daily. Atrial fibrillation with RVR. EKG shows atrial fibrillation with heart rate in 100-110 bpm. TSH within normal limits. Received 5 mg of IV metoprolol t.i.d. Q 15 minutes part Started on home medication metoprolol 25 mg p.o. daily. Started on Eliquis 5 mg b.i.d. however patient refused due to patient's propensity to bleed easily. Tele monitoring shows paced rhythm, atrial flutter underlying rhythm. Left subclavian artery stenosis. Patient has low blood pressure in her left arm and due to differential blood pressure CTA was done to rule out aortic dissection. Aortic dissection was ruled out but left subclavian artery shows greater than 50% stenosis. Blood pressures need to be checked only in the right arm for accurate measurements. CKD, unknown baseline. Creatinine is 1.5, patient mentions that she was told she has kidney problems prior. Monitor kidney function closely as the patient is on multiple medications such as Jardiance, spironolactone which may increase the potassium and worsening kidney function. Hold the above medications if kidney function worsens. Cellulitis, Started on Ancef Q eight scheduled. Consulted nutrition for gluten free diet. Physical examination at discharge: General: Alert, awake and oriented no apparent distress. HEENT: PERRL, EOMI, no injection, dry mucous membranes. Neck: Full range of motion. Respiratory: Bilateral crackles heard on examination, severe wheezing, decreased air entry Chest: Pacemaker appreciated without any signs of infection. No accessory muscle use. Cardiovascular: irregular rate and rhythm, no murmurs. Gastrointestinal: Soft, nontender, nondistended. Bowels sounds present. Extremities: Normal range of motion, no deformity. Neurologic: Oriented x4. Psychiatric: Anxious mood and affect. Skin: Reddish discoloration of bilateral feet, warm and dry. 2+ edema BLE with some superficial weeping areas covered with Band-Aids. Vital Signs Date Time Temp Pulse Resp B/P (MAP) Pulse Ox O2 Delivery O2 Flow Rate FiO2 03/21/25 15:18 70 20 Room Air 0.0 03/21/25 15:06 97 21 03/21/25 02:00 98.6 97/58 (71) Laboratory Tests Test 03/19/25 17:58 03/19/25 20:22 03/20/25 06:21 03/20/25 06:32 Glucometer 195 mg/dl 209 mg/dl Sodium Level 134 MMOL/L Potassium Level 4.4 MMOL/L Chloride Level 96 MMOL/L Carbon Dioxide Level 27.1 MMOL/L Anion Gap 11 Blood Urea Nitrogen 29 MG/DL Creatinine 1.62 MG/DL Estimated GFR/1.73 m2 31 ML/MIN BUN/Creatinine Ratio 17.9 Glucose Level 166 MG/DL Calcium Level 8.3 MG/DL Magnesium Level 2.6 MG/DL Total Bilirubin 0.5 MG/DL Aspartate Amino Transf (AST/SGOT) 64 U/L Alanine Aminotransferase (ALT/SGPT) 47 U/L Alkaline Phosphatase 88 IU/L Total Protein 6.5 G/DL Albumin 2.9 G/DL Globulin 3.6 G/DL Albumin/Globulin Ratio 0.8 Chemistry Comments White Blood Count 4.1 X10'3 Red Blood Count 4.08 X10'6 Hemoglobin 10.9 g/dl Hematocrit 34.3 % Mean Corpuscular Volume 84.0 FL Mean Corpuscular Hemoglobin 26.7 PG Mean Corpuscular Hemoglobin Concent 31.8 g/dL Red Cell Distribution Width 16.7 % Platelet Count 254 X10'3 Mean Platelet Volume 8.0 FL Neutrophils (%) (Auto) 72.8 % Lymphocytes (%) (Auto) 13.2 % Monocytes (%) (Auto) 13.8 % Eosinophils (%) (Auto) 0 % Basophils (%) (Auto) 0.2 % Neutrophils # (Auto) 3.0 X10'3 Lymphocytes # (Auto) 0.5 X10'3 Monocytes # (Auto) 0.6 X10'3 Eosinophils # (Auto) 0.0 X10'3 Basophils # (Auto) 0.0 X10'3 CBC Comment Test 03/20/25 07:38 03/20/25 12:00 03/20/25 17:33 03/20/25 22:29 Glucometer 168 mg/dl 170 mg/dl 217 mg/dl 187 mg/dl Test 03/21/25 08:25 03/21/25 09:18 Glucometer 150 mg/dl White Blood Count 5.7 X10'3 Red Blood Count 4.17 X10'6 Hemoglobin 11.0 g/dl Hematocrit 34.6 % Mean Corpuscular Volume 82.9 FL Mean Corpuscular Hemoglobin 26.5 PG Mean Corpuscular Hemoglobin Concent 31.9 g/dL Red Cell Distribution Width 16.9 % Platelet Count 278 X10'3 Mean Platelet Volume 8.4 FL Neutrophils (%) (Auto) 81.3 % Lymphocytes (%) (Auto) 7.6 % Monocytes (%) (Auto) 10.8 % Eosinophils (%) (Auto) 0 % Basophils (%) (Auto) 0.3 % Neutrophils # (Auto) 4.6 X10'3 Lymphocytes # (Auto) 0.4 X10'3 Monocytes # (Auto) 0.6 X10'3 Eosinophils # (Auto) 0.0 X10'3 Basophils # (Auto) 0.0 X10'3 CBC Comment Sodium Level 137 MMOL/L Potassium Level 4.2 MMOL/L Chloride Level 98 MMOL/L Carbon Dioxide Level 29.1 MMOL/L Anion Gap 10 Blood Urea Nitrogen 39 MG/DL Creatinine 1.57 MG/DL Estimated GFR/1.73 m2 32 ML/MIN BUN/Creatinine Ratio 24.8 Glucose Level 144 MG/DL Calcium Level 8.9 MG/DL Magnesium Level 2.7 MG/DL Total Bilirubin 0.5 MG/DL Aspartate Amino Transf (AST/SGOT) 57 U/L Alanine Aminotransferase (ALT/SGPT) 36 U/L Alkaline Phosphatase 89 IU/L Total Protein 6.5 G/DL Albumin 2.9 G/DL Globulin 3.6 G/DL Albumin/Globulin Ratio 0.8 Thyroid Stimulating Hormone (TSH) 2.31 ulU/ml Free Thyroxine 1.08 NG/DL Chemistry Comments Imaging: Chest x-ray: Cardiomegaly with mild pulmonary vascular congestion. No focal consolidation. Echocardiogram: Normal LV size and wall thickness. Overall systolic function is severely reduced. Multisegmental wall motion abnormalities. LVEF is 20-25%. RV is moderately dilated with reduced systolic function. RVSP is estimated at 64 mmHg. Pacemaker wire in right heart. Left atrium is severely dilated. Right atrium is severely dilated. Trileaflet AV appears mildly sclerotic without stenosis. Trace insufficiency. Moderate MV annular calcification without stenosis. Mild regurgitation. TV appears structurally normal with moderate regurgitation. Normal pericardium. No effusion. CTA aorta: No evidence of acute aneurysm, dissection, or intramural hematoma. Findings s uggestive of pulmonary hypertension. Mild cardiomegaly. Greater than 50% stenosis at the proximal left subclavian artery. Mildly distended gallbladder with adjacent free fluid. There is mild pneumobilia. Consider further evaluation with ultrasound. Vascular ultrasound: No right or left femoropopliteal venous thrombosis. Discharge instructions: Follow up with the PCP, corrosion control fitter in a week. Use the LifeVest as educated. We have prescribed a long-acting inhaler that should be taking one puff per day along with the short-acting rescue inhaler as needed. We have also made changed to one of your medication for heart failure. Take them as prescribed. Return to the ED if you have worsening shortness of breath, cough or fever *Problems/Diagnosis: (1) CHF exacerbation Status: Acute Total Time Spent on D/C: > 30 Minutes Date of Service: Mar 21, 2025 Billing Provider: FRANCY CANO MD Common Visit Codes: 48428-CEO/OBS DISCH DAY >30min TISH MO, RES Mar 21, 2025 15:40 FRANCY CANO MD Mar 23, 2025 00:12
== END 2025-03-21 18:38 | disposition home or self-care (01) | DRG 190 ==
LOC: ER 13:11 → ED HOLD 15:16 → PCU 3S 22:07
PROVIDERS: ADMIT Family Medicine; ATTEND Family Medicine
PROC: B32T1ZZ Computerized Tomography (CT Scan) of Left Pulmonary Artery using Low Osmolar Contrast (ICD-10-PCS; principal; 2025-03-18)
PROC: B3201ZZ Computerized Tomography (CT Scan) of Thoracic Aorta using Low Osmolar Contrast (ICD-10-PCS; 2025-03-18)
PROC: B32S1ZZ Computerized Tomography (CT Scan) of Right Pulmonary Artery using Low Osmolar Contrast (ICD-10-PCS; 2025-03-18)
DX: J44.1 Chronic obstructive pulmonary disease with (acute) exacerbation (principal); I21.A1 Myocardial infarction type 2; I50.23 Acute on chronic systolic (congestive) heart failure; L03.818 Cellulitis of other sites; Z59.00 Homelessness unspecified; N18.9 Chronic kidney disease, unspecified; E11.22 Type 2 diabetes mellitus with diabetic chronic kidney disease; I48.91 Unspecified atrial fibrillation; I70.8 Atherosclerosis of other arteries; Z88.1 Allergy status to other antibiotic agents; Z90.49 Acquired absence of other specified parts of digestive tract; Z87.891 Personal history of nicotine dependence; Z91.199 Patient's noncompliance with other medical treatment and regimen due to unspecified reason; Z95.0 Presence of cardiac pacemaker
CPT/HCPCS: 36415; 71045; 71275; 74174; 76770; 80053; 80061; 80305; 81001; 82570; 82948; 83036; 83605; 83735; 83880; 83935; 84133; 84156; 84300; 84439; 84443; 84484; 85007; 85025; 85379; 85610; 85651; 85730; 86140; 87040; 87081; 87207; 93005; 93306; 93970; 94640; 94760; 96365; 96375; 97110; 97161; 97530; 97535; 99285; A4649; A6212; A6213; A6250; A6446; A6449; G0378; J0690; J1815; J1940; J3490; J7030; J7040; J7512; Q9967

== ENCOUNTER 2025-05-01 17:39 | Inpatient (IN) | payer BC ==
[~2025-05-01] VITALS: Ht 175.3 cm; Wt 69.5 kg
[~2025-05-01 17:39] MED LIST: ALBU2.5V10 NEB; ASPI-1264 PO; BISM-155 PO; CYCL-394 PO; DIPH25CA83 PO; EMPA10TA PO; FLUT1AER INH; FURO-150 PO; LEVO75CA6 PO; LOSA50TA64 PO; MAGN250T11 PO; METO-539 PO; SPIR25TA5 PO; UBID100C16 PO; VITA0.4T18; deltasone PO
--- NOTE | 2025-05-01 19:34 | Physician Documentation ---
History of Present Illness ~ Chief Complaint: Extremity Swelling Stated Complaint: LEG SWELLING Time Seen by MD: 19:16 Primary Medical Doctor: Hospitalist/Resident Service Mode of Arrival: EMS HPI Patient presents to the emergency room for evaluation of bilateral lower extremity swelling. Medical history includes CHF, pulmonary hypertension, medication noncompliance celiac, pulmonary fibrosis, hypothyroidism. 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 She was recently at urgent care and prescribed Bactrim states her symptoms improved. Patient has been attempting to go to wound care that has not have a primary care for referral. Patient has a problem with noncompliance and takes some of her medications when she feels like it. Upon review of previous admission patient was prescribed in life vest but states she returned it as it made her feel uncomfortable. She returned to the hospital requesting additional prescription for Bactrim and she states she was told that because she does not take her usual medicines she will not be given additional Bactrim. She denies any actual fevers but has felt flushed at times. She has been in calamine lotion over her legs to help with the weeping because Band-Aids would get soaked. She states she would like to go to [place] however she is stuck between a reported entitlement of 20,000 dollars she is waiting for so she can take her trailer from here up to [place] Tetanus witin 5 years: Yes Medication Reconciliation Allergies: Coded Allergies: doxycycline (Verified Allergy, Severe, abdominal pain, 05/01/25) amoxicillin (Verified Allergy, Mild, abdominal pain, 05/01/25) meperidine (Verified Allergy, Mild, confusion, 05/01/25) metronidazole (Verified Allergy, Mild, hives, 05/01/25) broccoli (Verified Allergy, Unknown, 05/01/25) gluten (Unverified Allergy, Unknown, 05/01/25) Scheduled Furosemide (Furosemide), 1 TAB PO BID, (Reported) Levothyroxine Sodium (Levothyroxine Sodium), 1 TAB PO DAILY, (Reported) Losartan Potassium (Losartan Potassium), 1 TAB PO BID, (Reported) Discontinued Medications Albuterol Sulfate (Albuterol Sulfate), 1 VIAL NEB Q4HPRN PRN for wheezing, (Reported) Discontinued Reason: completed med therapy Aspirin* (Aspirin*), 1 TAB PO DAILY PRN for chest pain, (Reported) Discontinued Reason: completed med therapy Bismuth Subsalicylate (Bismuth Subsalicylate), 2 TAB PO Q6H, (Reported) Discontinued Reason: completed med therapy Cyclobenzaprine HCl (Cyclobenzaprine HCl), 1 TAB PO HS, (Reported) Discontinued Reason: completed med therapy Diphenhydramine Hcl (Benadryl), 1 CAP PO HS, (Reported) Discontinued Reason: completed med therapy Empagliflozin (Jardiance), 1 TAB PO DAILY, (Reported) Discontinued Reason: completed med therapy Fluticasone/Vilanterol (Breo Ellipta 100-25 Mcg INH), 1 PUFFS INH DAILY, (Reported) Discontinued Reason: completed med therapy Furosemide* (Lasix*), 1 TAB PO DAILY, (Reported) Discontinued Reason: completed med therapy Levothyroxine Sodium (Levothyroxine), 1 TAB PO DAILY, (Reported) Discontinued Reason: completed med therapy Losartan Potassium (Losartan Potassium), 50 MG PO DAILY, (Reported) Discontinued Reason: completed med therapy Magnesium Oxide (Magnesium), 1 TAB PO DAILY, (Reported) Discontinued Reason: completed med therapy Metoprolol Succinate* (Toprol Xl*), 1 TAB PO DAILY, (Reported) Discontinued Reason: completed med therapy Spironolactone (Spironolactone), 0.5 TAB PO DAILY, (Reported) Discontinued Reason: completed med therapy Ubidecarenone (Coq-10), 100 MG PO, (Reported) Discontinued Reason: completed med therapy Vitamin B Complex/Folic Acid (Super B Maxi Complex Caplet), (Reported) Discontinued Reason: completed med therapy [deltasone], 20 MEQ PO DAILY PRN for cough, (Reported) Discontinued Reason: patient no longer taking Past Medical History Patient History: Atrial septal defect MOTHER FH: brain aneurysm FATHER Alcohol Use: Abuse Drug Use: none Lives with: Alone Lives In: Home Occupation: retired Review of Systems ROS All review of systems negative except as per HPI Physical Exam Vital Signs: Temperature: 97.8, Source: Temporal, Heart Rate: 75, Respiratory Rate: 16, BP: 116/49, Pulse Oximetry: 100, Weight: 69.550 Physical Exam General: Patient is awake, alert, oriented x4 in no acute distress Head: Normocephalic and atraumatic. Eyes: Conjunctival normal. EOMI. PERRL. ENT: Mucous membranes moist. Neck: Supple, trachea is midline. Chest: Clear to auscultation bilaterally without rales, rhonchi, or wheezes. There is no accessory muscle use or retractions. Cardiac: RRR without murmurs, gallops, or rubs. Extremities: Bilateral lower extremities with severe edema with some leaking transit of fluid. Chronic appearing ulcer to the medial left calf with no cellulitis. Progress Results/Orders Results/Orders Orders - DANI FORREST MD Electrocardiogram (05/01/25 19:43) Chest,Single View (05/01/25 20:11) Page Hospitalist (05/01/25 20:48) Fill Out Med Reconciliation (05/01/25 20:48) Completed Orders - DANI FORREST MD Cbc/Diff (05/01/25 19:37) MG (05/01/25 19:37) PBNP (05/01/25 19:37) Hs Troponin I W Calculations (05/01/25 19:37) Procalcitonin (05/01/25 19:37) Chest,Single View (05/01/25 20:11) Man Diff (05/01/25 20:08) BMP (05/01/25 20:08) Vital Signs 05/01/25 05/01/25 05/01/25 17:42 18:08 19:17 Temp 97.8 Pulse 95 75 Resp 18 16 16 B/P (MAP) 161/68 116/49 (71) Pulse Ox 98 100 Laboratory Tests Test 05/01/25 19:11 05/01/25 20:08 Urine Specimen Description Cln catch midstream Urine Color Straw Urine Clarity Clear Urine pH 6.0 Urine Specific [place] 1.020 Urine Protein 30 H Urine Glucose (UA) Negative Urine Ketones Trace H Urine Occult Blood Negative Urine Nitrite Negative Urine Bilirubin Small Urine Urobilinogen 0.2 Urine Leukocyte Esterase Trace H Urine RBC 0-2 Urine WBC 10-20 H Urine Squamous Epithelial Cells Moderate Urine Bacteria 2+ Urine Hyaline Casts 0-3 Urine Mucus Few Urine Culture Indicated Indicated Volume Urine Centrifuged 10 ml Urine Comment White Blood Count 6.1 Red Blood Count 4.95 Hemoglobin 12.4 Hematocrit 39.7 Mean Corpuscular Volume 80.0 Mean Corpuscular Hemoglobin 25.0 L Mean Corpuscular Hemoglobin Concent 31.3 L Red Cell Distribution Width 21.3 H Platelet Count 367 Mean Platelet Volume 7.5 Neutrophils (%) (Auto) Lymphocytes (%) (Auto) Monocytes (%) (Auto) Eosinophils (%) (Auto) Basophils (%) (Auto) Neutrophils # (Auto) Lymphocytes # (Auto) Monocytes # (Auto) Eosinophils # (Auto) Basophils # (Auto) CBC Comment Differential Total Cells Counted 100 Neutrophils % (Manual) 74 Band Neutrophils % 3 Lymphocytes % (Manual) 15 L Monocytes % (Manual) 7 Eosinophils % (Manual) 1 Toxic Vacuolation 1+ Platelet Estimate Normal Red Blood Cell Morphology Perf Basophilic Stippling Anisocytosis 1+ Target Cells 1+ Sodium Level 137 Potassium Level 5.0 Chloride Level 100 Carbon Dioxide Level 30.6 Anion Gap 6 L Blood Urea Nitrogen 32 H Creatinine 1.17 H Estimated GFR/1.73 m2 45 BUN/Creatinine Ratio 27.4 H Glucose Level 120 H Calcium Level 9.0 Magnesium Level 2.8 H Troponin I High Sensitivity 105 *H Pro-B-Type Natriuretic Peptide 48496 H Albumin 3.1 L Procalcitonin < 0.05 Chemistry Comments Medical Decision Making Findings Patient presents to the emergency room with lower extremity swelling as per HPI. Differentials include but are not limited to CHF exacerbation, cellulitis, DVT, lymphedema therefore emergent labs ordered. Significant elevation of BNP that has well as patient's troponin. She denies chest pain he had not believe she is suffering from ACS but rather demand ischemia. Utilizing shared decision-making patient refer to be admitted. Lasix initiated. Patient with compliance issues which we will pose a challenge treating her symptoms. Departure Admitted to Inpatient Unit: yes, to hospitalist Impression: Primary Impression: CHF exacerbation Condition: Guarded Referrals: NO PRIMARY CARE PROVIDER (PCP) Signature Scribe Signature: No scribe Attestation: The note accurately reflects work and decisions made by me.Dani Forrest MD 05/01/25 20:50 DANI FORREST MD May 01, 2025 19:34
[2025-05-01 20:17] LABS: MEAN PLATELET VOLUME 7.5 FL (7.4-10.4); RED CELL DISTRIBUTION WIDTH 21.3 % (11.5-14.5)
--- NOTE | 2025-05-01 20:29 | RADIOLOGY REPORT ---
CLINICAL HISTORY: CP TECHNIQUE: ermias-posterior ermias-posterior view of the chest was obtained view of the chest was ob tained. WID: COMPARISON: DI CHEST,SINGLE VIEW on DOS: 04/02/25, DI CHEST,SINGLE VIEW on DOS: 03/18/25 FINDINGS: Lungs: Pulmonary vascular congestion with septal thickening. Left lower lobe opacity with Obscuration of the left hemidiaphragm with blunting of the left costophrenic sulcus. Cardiomediastinal silhouette: The heart is enlarged. Left chest pacer with leads projecting over the radial appendage and right ventricle. Calcification aortic arch. Bones: No acute osseous abnormality. Imaged upper Abdomen: unremarkable. IMPRESSION: 1. Cardiomegaly with mild interstitial pulmonary edema 2. Left retrocardiac / lower lobe opacity may represent superimposed small left effusion, atelectasis , or infection.
[2025-05-01 20:36] LABS: BANDS% (MANUAL) 3 % (0-10); EOSINOPHILS % (MANUAL) 1 % (0-6); LYMPHOCYTES % (MANUAL) 15 % (21-51); MONOCYTES % (MANUAL) 7 % (2-12); NEUTROPHILS % (MANUAL) 74 % (42-75); PLATELET ESTIMATE NORMAL
[2025-05-01 20:37] LABS: PRO BRAIN NATRIURETIC PEPTIDE 28695 PG/ML (0-450)
[2025-05-01 20:49] LABS: CREATININE 1.17 MG/DL (0.40-0.90); TOTAL CARBON DIOXIDE 30.6 MMOL/L (24-32); eCRCL 43 ML/MIN; eGFR 45 ML/MIN
[2025-05-01] MEDS ORDERED: furosemide 10 MG/1 ML 10ml inj IV ONE (20:50)
[2025-05-01] MEDS ORDERED: magnesium sulf-water 4G/100mL 100 ML IV PRN (21:35)
[2025-05-01] MEDS ORDERED: potassium Cl 20 mEq SR tablet PO PRN ×2 (21:35)
[2025-05-01] MEDS ORDERED: ondansetron/PF 4mg/2ml inj IV PRN (21:35)
[2025-05-01] MEDS: furosemide 10 MG/1 ML 10ml inj IV ONE (21:35)
[2025-05-01] MEDS ORDERED: potassium Cl 40MEQ/1/2NS 520ml 520 ML IV PRN (21:35)
[2025-05-01] MEDS ORDERED: mag hydrox/Alum hydrox/simeth 30ml oral suspension PO PRN (21:35)
[2025-05-01] MEDS ORDERED: magnesium Cl slow-release 64mg tablet PO PRN (21:35)
[2025-05-01] MEDS ORDERED: HYDROcodone/acetaminophen 5mg/325mg tablet PO PRN (21:35)
[2025-05-01] MEDS ORDERED: magnesium sulf-water 2g/50mL 50 ML IV PRN (21:35)
[2025-05-01] MEDS ORDERED: LEVO125T8 PO (21:47)
[2025-05-01] MEDS ORDERED: FURO40TA4 PO (21:47)
[2025-05-01] MEDS ORDERED: LOSA25TA41 PO (21:47)
[2025-05-01 22:04] LABS: LEUKOCYTE ESTERASE ,URINE TRACE (Neg); NITRITES, URINE NEGATIVE (Neg); OCCULT BLOOD,URINE NEGATIVE (Neg)
[2025-05-01 22:05] LABS: UA COLLECTION TYPE CLN CATCH MIDSTREAM
[2025-05-01 22:10] LABS: HYALINE CASTS 0-3 /LPF (NEGATIVE); MUCUS STRANDS FEW /LPF (Neg); SQUAMOUS EPITHELIAL CELL,UR MODERATE /LPF (FEW)
[2025-05-01 23:10] VITALS: RESP 18; O2SAT 94
[2025-05-02] VITALS (7 sets, daily range): BP systolic 131–149; BP diastolic 52–77; PULSE 62–85; RESP 14–21; TEMP 97.2–97.8; O2SAT 92–99
--- NOTE | 2025-05-02 02:44 | HISTORY AND PHYSICAL-Residence ---
History & Physical Providers to CC Resident Creating Document: EMMA BRIGGS, RES CC: MARIELLA BURROWS MD ~ History of Present Illness Primary Medical Doctor: Hospitalist/Resident Service Reason for Admit\Complaint: SOB and b/l LE swelling History of Present Illness A 74 yr old female who is noncompliant with past medical history of AFib s/p ppm, HFrEF, subclavian artery stenosis presented to the ED in view of worsening shortness of breaths and bilateral lower extremity swelling with ulcers patient states that patient was not even able to walk 20 yd which is the worst over the period of five months. Patient is noncompliant with Lasix especially 80 mg. Patient endorses orthopnea, PND. Patient states that she has small papules that worsened to chronic ulcers with a period of five months. Patient denies chest pain, palpitations, dizziness. Allergies: Coded Allergies: doxycycline (Verified Allergy, Severe, abdominal pain, 05/01/25) amoxicillin (Verified Allergy, Mild, abdominal pain, 05/01/25) meperidine (Verified Allergy, Mild, confusion, 05/01/25) metronidazole (Verified Allergy, Mild, hives, 05/01/25) broccoli (Verified Allergy, Unknown, 05/01/25) gluten (Unverified Allergy, Unknown, 05/01/25) Home Medications Home Medications Active Reported Furosemide 40 Mg Tablet 1 Tab PO BID Losartan Potassium 25 Mg Tablet 1 Tab PO BID Levothyroxine Sodium 125 Mcg Tablet 1 Tab PO DAILY Past Medical History Past Medical History HTN HFrEF Subclavian artery stenosis Hypothyroidism Celiac disease AFib Past Surgical History Surgical History Comment Lumbar diskectomy Appendectomy Tonsillectomy Pacemaker placement in November 2024 Family History Family History: Atrial septal defect MOTHER FH: brain aneurysm FATHER Past Social History Social History Comment Quit 13 years ago, smoked for 40 years Consumes two brandies daily, does not know the strength 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 Patient is homeless, lives with her friend temporarily Smoking: Quit greater than 1 year Alcohol Use: Abuse Drug Use: None Lives with: Alone Lives In: Home Occupation: retired ROS ROS All other systems reviewed in full and negative except for the pertinent positives mentioned in the HPI Exam Vitals: Vital Signs Date Time Temp Pulse Resp B/P (MAP) Pulse Ox O2 Delivery O2 Flow Rate FiO2 05/01/25 23:12 74 05/01/25 19:17 16 116/49 (71) 100 05/01/25 17:42 97.8 General: General: Alert, awake, oriented, not in acute distress HEENT: PERRLA, no icterus, pallor, lymphadenopathy, carotid bruit Respiratory system: Bilateral vesicular breath sounds heard, bilateral crackles heard, infraclavicular pacemaker CVS: S1-S2 heard, bilateral basal Creps heard GI: Soft, nontender, no organomegaly, no guarding/rigidity, bowel sounds present Neuro: No focal neurological deficits present Extremities: Erythematous, 3+ pitting pedal edema, multiple shallow ulcers with pus drainage Skin: Warm and dry, healing scars from bug bites all over the body Diagnostic Data Last Recorded Lab Results: 05/01/25200705/01/252007 Advance Care Planning Advanced Care plannin - 30 Minutes (I spent 20 minutes discussing various resuscitative measures and the patient full code) Additional Plan Assessment: A 74-year-old female who is noncompliant with multiple medical comorbidities presented to the ED in view of worsening shortness of breath, bilateral pedal edema and chronic ulcers. Patient is admitted for the management and evaluation of acute exacerbation of CHF and chronic ulcers. Plan: Acute on chronic heart failure with reduced ejection fraction, EF: 20-25% Chronically elevated proBNP ACC/AHA Stage C NYHA: Class III Echo in March,: EF: 20 25%, overall systolic function severely reduced, Multisegmental wall motion abnormalities.RVSP is estimated at 64 mmHg. CXR: Cardiomegaly with mild interstitial pulmonary edema. Left retrocardiac / lower lobe opacity may represent superimposed small left effusion, atelectasis, or infection. IV Lasix 60 mg one time dose given, titrate Lasix as required Strict Is&Os Fluid Restriction: 1.2 L Consider optimization with GDM T: Patient is already on losartan 25 mg bid, consider starting on a beta pa, SGLT2 inhibitor and spironolactone. Continue to monitor telemetry Bilateral chronic ulcers & cellulitis Wound care Started the patient on IV meropenem 1 g q.8h and IV vancomycin pharmacy to dose Consider venous and arterial studies of the patient continues to worsen Prerenal ERNESTO probably secondary to renal tubular stasis Elevated BUN and creatinine Continue to monitor BMP Continue IV Lasix as required Asymptomatic bacteriuria Follow up with urine cultures Mild Troponinemia Probably secondary to inflammation and CHF Follow up with repeat troponin AFib s/p ppm [id number]: 5 Patient is not on any anticoagulation, rhythm/rate controlled medication Re-evaluate in a.m. HTN Continue losartan 25 mg b.i.d. Hypothyroidism Follow up with TSH Continue levothyroxine 125 mcg once daily Subclavian artery stenosis Outpatient follow up Code status: Full code Diet: Heart healthy DVT prophylaxis: Heparin Disposition: Admit to PCU, monitor I/O, continue to monitor tele Emma Briggs MD Internal Medicine, PGY 2 Agree with the plan above with no changes. Discussed case with the resident and agree with the assessment and plan. Mariella Burrows MD Critical Care Date of Service: May 01, 2025 Billing Provider: MARIELLA BURROWS MD, SIVA, RES May 02, 2025 02:44 MARIELLA BURROWS MD May 02, 2025 18:39
[2025-05-02] MEDS: vancomycin/NS 1 GM ADD-VANTAGE 250 ML IV SCH (03:30)
--- NOTE | 2025-05-02 06:00 | ELECTROCARDIOGRAPH REPORT ---
[facility] Test Date: 2025-05-01 Test Time: 20:00:30 Pat Name: HALIMA HARMON Department: EMERGENCY ROOM Room: [place] [address] [address] Gender: F Manganese Wheeler: TIFFANY : 1950 Requested By: MICHELLE PADILLA Order Number: [id number] Reading MD: Dr. Jc Nova Measurements Intervals [place] Rate: 80 P: 0 PA: 0 QRS: 46 QRSD: 93 T: 266 QT: 398 QTc: 460 Interpretive Statements Afib/flut and V-paced complexes No further rhythm analysis attempted due to paced rhythm Probable LVH with secondary repol abnrm Baseline wander in lead(s) II,III,aVR,aVF Electronically Signed On 05-02-2025 18:20:[address] Jc Nova Please click the below link to view image of tracing.
[2025-05-02 06:06] LABS: MEAN PLATELET VOLUME 7.8 FL (7.4-10.4); RED CELL DISTRIBUTION WIDTH 20.4 % (11.5-14.5)
[2025-05-02 06:30] LABS: CHOL/HDL RATIO 2.5 (0.00-4.99); CREATININE 1.00 MG/DL (0.40-0.90); LDL CHOLESTEROL 64 MG/DL (50-100); TOTAL CARBON DIOXIDE 29.3 MMOL/L (24-32); eCRCL 50 ML/MIN; eGFR 54 ML/MIN
[2025-05-02] MEDS: MEROPENEM 1GM/NACL 50ML IVPB 50 ML IV SCH (07:25)
[2025-05-02] MEDS: docusate sod 100mg capsule PO SCH (07:25)
[2025-05-02] MEDS: heparin, porcine 5000 units/ml vial SQ SCH (07:26)
[2025-05-02] MEDS: K and/or MAG REPLACEMENT MC SCH (07:26)
--- NOTE | 2025-05-02 18:41 | PROGRESS NOTE ---
Daily Progress Note Providers to CC ~ Antibiotic Timeout Antibiotic Ordered?: No Subjective Patient was seen in her room it appears that patient is currently homeless. Patient was not taking Lasix and does not like this medication as she has to pee constantly. Patient is planning to go to [place] in mentioned she is expected that some money we will come from somewhere Objective Vital Signs Date Time Temp Pulse Resp B/P (MAP) Pulse Ox O2 Delivery O2 Flow Rate FiO2 05/02/25 15:00 97.8 85 21 142/63 (89) 97 Room Air Result Diagram: 05/02/25 0455 05/02/25 0455 General-patient not in any acute distress, alert awake oriented, chronically ill-appearing HEENT-atraumatic normocephalic, neck supple without elevated JVD, no thyromegaly or carotid bruit. No lymphadenopathy bilaterally. Eyes-no icterus or pallor seen in eyes Chest-clear to auscultation over right lung but left lung crackles present, breathing nonlabored no tachypnea, no wheezing, Heart-S1-S2 normal, regular heart rate no murmur Abdomen bowel sounds positive on auscultation, soft nondistended nontender no guarding, no rigidity Skin no active skin rash, dressing present over bilateral lower extremity Neurology-grossly intact, nonfocal alert awake oriented Extremity- no pedal edema able to move all four extremity. dressing present over bilateral lower extremity Psychiatry - patient is not confused or agitated cooperated during physical examination Problem\Assessment\Plan A 74-year-old female who is noncompliant with multiple medical comorbidities presented to the ED in view of worsening shortness of breath, bilateral pedal edema and chronic ulcers. Patient is admitted for the management and evaluation of acute exacerbation of CHF and chronic ulcers. Plan: Acute on chronic heart failure with reduced ejection fraction, EF: 20-25% Chronically elevated proBNP ACC/AHA Stage C NYHA: Class III Echo in March,: EF: 20 25%, overall systolic function severely reduced, Multisegmental wall motion abnormalities.RVSP is estimated at 64 mmHg. CXR: Cardiomegaly with mild interstitial pulmonary edema. Left retrocardiac / lower lobe opacity may represent superimposed small left effusion, atelectasis, or infection. IV Lasix 60 mg one time dose given, titrate Lasix as required Strict Is&Os Fluid Restriction: 1.2 L will Consider optimization with GDMT: Patient is already on losartan 25 mg bid, will consider starting on a beta pa, SGLT2 inhibitor and spironolactone. Continue to monitor telemetry Bilateral chronic ulcers & cellulitis Wound care Started the patient on IV meropenem 1 g q.8h and IV vancomycin pharmacy to dose Consider venous and arterial studies of the patient continues to worsen Prerenal ERNESTO probably secondary to renal tubular stasis Elevated BUN and creatinine Continue to monitor BMP Continue IV Lasix as required Asymptomatic bacteriuria Follow up with urine cultures Mild Troponinemia Probably secondary to inflammation and CHF Follow up with repeat troponin AFib s/p ppm [id number]: 5 Patient is not on any anticoagulation, rhythm/rate controlled medication Re-evaluate in a.m. HTN Continue losartan 25 mg b.i.d. Hypothyroidism Follow up with TSH Continue levothyroxine 125 mcg once daily Subclavian artery stenosis Outpatient follow up Code status: Full code Diet: Heart healthy DVT prophylaxis: Heparin Current condition is guarded we will continue to follow patient in AM Date of Service: May 02, 2025 Billing Provider: CYNTHIA GOLDEN MD Common Visit Codes: [id number] INP/OBS CARE(HIGH) CYNTHIA GOLDEN MD May 02, 2025 18:41
[2025-05-03] VITALS (7 sets, daily range): BP systolic 126–156; BP diastolic 49–75; PULSE 66–86; RESP 13–24; TEMP 97.6–98; O2SAT 95–98
[2025-05-03 09:36] LABS: CREATININE 1.04 MG/DL (0.40-0.90); TOTAL CARBON DIOXIDE 30.9 MMOL/L (24-32); eCRCL 48 ML/MIN; eGFR 52 ML/MIN
[2025-05-03 09:37] LABS: MEAN PLATELET VOLUME 7.6 FL (7.4-10.4); RED CELL DISTRIBUTION WIDTH 21.1 % (11.5-14.5)
[2025-05-03 10:09] LABS: EOSINOPHILS % (MANUAL) 2.0 % (0-6); LYMPHOCYTES % (MANUAL) 11.0 % (21-51); MONOCYTES % (MANUAL) 11.0 % (2-12); NEUTROPHILS % (MANUAL) 76.0 % (42-75)
[2025-05-03 10:10] LABS: PLATELET ESTIMATE NORMAL
--- NOTE | 2025-05-03 17:54 | PROGRESS NOTE ---
Daily Progress Note Providers to CC ~ Antibiotic Timeout Antibiotic Ordered?: No Subjective Patient was seen in her room lower extremity wound examined we will continue wound care. Detailed counseling done regarding systolic congestive heart failure and treatment discussed. Patient is strongly advised to be compliant with the medications. Objective Vital Signs Date Time Temp Pulse Resp B/P (MAP) Pulse Ox O2 Delivery O2 Flow Rate FiO2 05/03/25 15:00 97.6 86 17 142/49 (80) 95 Room Air Result Diagram: 05/03/25 0914 05/03/25 0914 General-patient not in any acute distress, alert awake oriented, chronically ill-appearing HEENT-atraumatic normocephalic, neck supple without elevated JVD, no thyromegaly or carotid bruit. No lymphadenopathy bilaterally. Eyes-no icterus or pallor seen in eyes Chest-clear to auscultation over right lung but left lung crackles present, breathing nonlabored no tachypnea, no wheezing, Heart-S1-S2 normal, regular heart rate no murmur Abdomen bowel sounds positive on auscultation, soft nondistended nontender no guarding, no rigidity Skin - signs of open wound over left lower extremity in erythema present right lower extremity showed signs of chronic hyperpigmentation 1+ edema Neurology-grossly intact, nonfocal alert awake oriented Extremity- 1 plus pedal edema able to move all four extremity. Psychiatry - patient is not confused or agitated cooperated during physical examination Problem\Assessment\Plan A 74-year-old female who is noncompliant with multiple medical comorbidities presented to the ED in view of worsening shortness of breath, bilateral pedal edema and chronic ulcers. Patient is admitted for the management and evaluation of acute exacerbation of CHF and chronic ulcers. Plan: Acute on chronic heart failure with reduced ejection fraction, EF: 20-25% Chronically elevated proBNP ACC/AHA Stage C NYHA: Class III Echo in March,: EF: 20 25%, overall systolic function severely reduced, Multisegmental wall motion abnormalities.RVSP is estimated at 64 mmHg. CXR: Cardiomegaly with mild interstitial pulmonary edema. Left retrocardiac / lower lobe opacity may represent superimposed small left effusion, atelectasis, or infection. IV Lasix 60 mg one time dose given, titrate Lasix as required Strict Is&Os Fluid Restriction: 1.2 L will Consider optimization with GDMT: Patient is already on losartan 25 mg bid, will consider starting on a beta pa, SGLT2 inhibitor and spironolactone. Continue to monitor telemetry Bilateral chronic ulcers & cellulitis- healing well Wound care Started the patient on IV meropenem 1 g q.8h and IV vancomycin pharmacy to dose Consider venous and arterial studies of the patient continues to worsen Prerenal ERNESTO probably secondary to renal tubular stasis Elevated BUN and creatinine Continue to monitor BMP Continue IV Lasix as required Acute UTI urine cultures showing Gram-negative rods, currently on Meropenam Mild Troponinemia Probably secondary to inflammation and CHF Likely type 2 [place] AFib s/p ppm [id number]: 5 Patient is not on any anticoagulation, rhythm/rate controlled medication Continue to monitor under tele monitor HTN Continue losartan 25 mg b.i.d. Hypothyroidism TSH 0.23 decreased levothyroxine to 100 mcg once daily Subclavian artery stenosis Outpatient follow up Code status: Full code Diet: Heart healthy DVT prophylaxis: Heparin Current condition is guarded we will continue to follow patient in AM from hospitalist team . Date of Service: May 03, 2025 Billing Provider: CYNTHIA GOLDEN MD Common Visit Codes: [id number] INP/OBS CARE(HIGH) CYNTHIA GOLDEN MD May 03, 2025 17:54
[2025-05-03] MEDS: JUVEN Smoothie Arginine/Glut./Ca2+Bmb (Juven 19.3pkt) 240ml cup PO SCH (17:56)
[2025-05-04] VITALS (9 sets, daily range): BP systolic 121–148; BP diastolic 46–65; PULSE 46–104; RESP 16–22; TEMP 97.1–98.1; O2SAT 82–100
[2025-05-04 06:13] LABS: CREATININE 1.13 MG/DL (0.40-0.90); TOTAL CARBON DIOXIDE 30.0 MMOL/L (24-32); eCRCL 44 ML/MIN; eGFR 47 ML/MIN
[2025-05-04] MEDS: levoTHYROXINE 100mcg tablet PO SCH (07:46)
[2025-05-04 07:56] LABS: MEAN PLATELET VOLUME 7.9 FL (7.4-10.4); RED CELL DISTRIBUTION WIDTH 21.1 % (11.5-14.5)
[2025-05-04 08:31] LABS: EOSINOPHILS % (MANUAL) 3.0 % (0-6); LYMPHOCYTES % (MANUAL) 17.0 % (21-51); MONOCYTES % (MANUAL) 8.0 % (2-12); NEUTROPHILS % (MANUAL) 72.0 % (42-75)
[2025-05-04 08:35] LABS: PLATELET ESTIMATE NORMAL
--- NOTE | 2025-05-04 20:43 | PROGRESS NOTE ---
Daily Progress Note Providers to CC ~ Antibiotic Timeout Antibiotic Ordered?: Yes Subjective The patient is states that her lower extremity wounds are improving the patient did okay with physical therapy today though they are recommending post acute rehab Objective Vital Signs Date Time Temp Pulse Resp B/P (MAP) Pulse Ox O2 Delivery O2 Flow Rate FiO2 05/04/25 20:12 46 05/04/25 18:00 98.1 18 129/58 (81) 96 Room Air Result Diagram: 05/04/25 0704 05/04/25 0502 Gen. No acute distress alert and oriented 4 Lungs clear to ascultation bilaterally, no wheezes rales or rhonchi appreciated Heart normal sinus rhythm no murmurs rubs or clicks noted Abdomen soft nontender bowel sounds are normoactive Lower extremities no clubbing cyanosis, bilaterally dressing is in place in the left lower extremity, generalized erythema distally bilaterally, trace bilateral edema Problem\Assessment\Plan A 74-year-old female who is noncompliant with multiple medical comorbidities presented to the ED in view of worsening shortness of breath, bilateral pedal edema and chronic ulcers. Patient is admitted for the management and evaluation of acute exacerbation of CHF and chronic ulcers. Plan: Acute on chronic heart failure with reduced ejection fraction, EF: 20-25% Chronically elevated proBNP ACC/AHA Stage C NYHA: Class III Echo in March,: EF: 20 25%, overall systolic function severely reduced, Multisegmental wall motion abnormalities.RVSP is estimated at 64 mmHg. CXR: Cardiomegaly with mild interstitial pulmonary edema. Left retrocardiac / lower lobe opacity may represent superimposed small left effusion, atelectasis, or infection. IV Lasix 60 mg one time dose given, titrate Lasix as required Strict Is&Os Fluid Restriction: 1.2 L will Consider optimization with GDMT: Patient is already on losartan 25 mg bid, will consider starting on a beta pa, SGLT2 inhibitor and spironolactone. Continue to monitor telemetry 05/04 patient has a couple of episodes of bradycardia thus hold off starting a beta-pa, start Jardiance and stopped losartan and start Entresto Bilateral chronic ulcers & cellulitis- healing well Wound care Started the patient on IV meropenem 1 g q.8h and IV vancomycin pharmacy to dose Consider venous and arterial studies of the patient continues to worsen 05/04 continue IV vancomycin in [place] meropenem start IV Rocephin Chronic kidney disease no signs of an acute kidney injury Elevated BUN and creatinine Continue to monitor BMP Continue IV Lasix as required Acute UTI Urine culture grew out Citrobacter pansensitive On Rocephin Mild Troponinemia Probably secondary to inflammation and CHF Likely type 2 [place] AFib s/p ppm [id number]: 5 Patient is not on any anticoagulation, rhythm/rate controlled medication Continue to monitor under tele monitor HTN Continue losartan 25 mg b.i.d. Hypothyroidism TSH 0.23 decreased levothyroxine to 100 mcg once daily Subclavian artery stenosis Outpatient follow up Code status: Full code Diet: Heart healthy DVT prophylaxis: Heparin Disposition: Continue PT Date of Service: May 04, 2025 Billing Provider: ESMER WIGGINS DO Common Visit Codes: [id number] INP/OBS CARE(HIGH) ESMER WIGGINS DO May 04, 2025 20:43
[2025-05-05] VITALS (9 sets, daily range): BP systolic 127–153; BP diastolic 49–67; PULSE 64–72; RESP 14–18; TEMP 97.4–97.5; O2SAT 89–100
[2025-05-05] MEDS: VANCOMYCIN LEVEL IV ONE (03:30)
[2025-05-05 05:52] LABS: MEAN PLATELET VOLUME 8.0 FL (7.4-10.4); RED CELL DISTRIBUTION WIDTH 21.2 % (11.5-14.5)
[2025-05-05 06:04] LABS: CREATININE 1.27 MG/DL (0.40-0.90); TOTAL CARBON DIOXIDE 29.9 MMOL/L (24-32); eCRCL 39 ML/MIN; eGFR 41 ML/MIN
[2025-05-05] MEDS: sacubitril/valsartan 24mg-26mg tablet PO SCH (09:44)
[2025-05-05] MEDS: CefTRIAXone/D5W-Rocephin 1gm 50 ML IV SCH (09:44)
[2025-05-05] MEDS: EMPAGLIFLOZIN 10 MG TABLET PO SCH (09:45)
--- NOTE | 2025-05-05 22:59 | PROGRESS NOTE ---
Daily Progress Note Providers to CC ~ Antibiotic Timeout Antibiotic Ordered?: Yes Subjective I was anticipating discharging the patient today however she has a accepted being transferred to rehab- case management to send out referrals Objective Vital Signs Date Time Temp Pulse Resp B/P (MAP) Pulse Ox O2 Delivery O2 Flow Rate FiO2 05/05/25 19:06 97.5 69 18 153/61 (91) 89 Room Air 0.0 21 Result Diagram: 05/05/2542405/05/25424 Gen. No acute distress alert and oriented 4 Lungs clear to ascultation bilaterally, no wheezes rales or rhonchi appreciated Heart normal sinus rhythm no murmurs rubs or clicks noted Abdomen soft nontender bowel sounds are normoactive Lower extremities no clubbing cyanosis, bilaterally dressing is in place in the left lower extremity, generalized erythema distally bilaterally, trace bilateral edema Problem\Assessment\Plan A 74-year-old female who is noncompliant with multiple medical comorbidities presented to the ED in view of worsening shortness of breath, bilateral pedal edema and chronic ulcers. Patient is admitted for the management and evaluation of acute exacerbation of CHF and chronic ulcers. Plan: Acute on chronic heart failure with reduced ejection fraction, EF: 20-25% Chronically elevated proBNP ACC/AHA Stage C NYHA: Class III Echo in March,: EF: 20 25%, overall systolic function severely reduced, Multisegmental wall motion abnormalities.RVSP is estimated at 64 mmHg. CXR: Cardiomegaly with mild interstitial pulmonary edema. Left retrocardiac / lower lobe opacity may represent superimposed small left effusion, atelectasis, or infection. IV Lasix 60 mg one time dose given, titrate Lasix as required Strict Is&Os Fluid Restriction: 1.2 L will Consider optimization with GDMT: Patient is already on losartan 25 mg bid, will consider starting on a beta pa, SGLT2 inhibitor and spironolactone. Continue to monitor telemetry 05/04 patient has a couple of episodes of bradycardia thus hold off starting a beta-pa, start Jardiance and stopped losartan and start Entresto Bilateral chronic ulcers & cellulitis- healing well Wound care Started the patient on IV meropenem 1 g q.8h and IV vancomycin pharmacy to dose Consider venous and arterial studies of the patient continues to worsen 05/04 continue IV vancomycin in [place] meropenem start IV Rocephin 05/05 continues to improve Chronic kidney disease no signs of an acute kidney injury Elevated BUN and creatinine Continue to monitor BMP Continue IV Lasix as required Acute UTI Urine culture grew out Citrobacter pansensitive On Rocephin Mild Troponinemia Probably secondary to inflammation and CHF Likely type 2 [place] AFib s/p ppm [id number]: 5 Patient is not on any anticoagulation, rhythm/rate controlled medication Continue to monitor under tele monitor HTN On Entresto Hypothyroidism TSH 0.23 decreased levothyroxine to 100 mcg once daily Subclavian artery stenosis Outpatient follow up Code status: Full code Diet: Heart healthy DVT prophylaxis: Heparin Disposition: Post acute rehab Date of Service: May 05, 2025 Billing Provider: ESMER WIGGINS DO Common Visit Codes: [id number] INP/OBS CARE(HIGH) ESMER WIGGINS DO May 05, 2025 22:59
[2025-05-06] MEDS: VANCOmycin 1250MG/NS 250ml Bag 250 ML IV SCH (03:47)
[2025-05-06 06:00] VITALS: BP 101/60; PULSE 66; RESP 16; TEMP 98.6; O2SAT 99
[2025-05-06 06:41] LABS: MEAN PLATELET VOLUME 8.0 FL (7.4-10.4); RED CELL DISTRIBUTION WIDTH 20.7 % (11.5-14.5)
[2025-05-06 07:00] LABS: CREATININE 1.10 MG/DL (0.40-0.90); TOTAL CARBON DIOXIDE 29.1 MMOL/L (24-32); eCRCL 45 ML/MIN; eGFR 48 ML/MIN
[2025-05-06 07:14] LABS: ELLIPTOCYTES FEW; PLATELET ESTIMATE NORMAL
[2025-05-06 10:00] VITALS: BP 129/57; PULSE 69; RESP 18; TEMP 97.4; O2SAT 100
--- NOTE | 2025-05-06 15:03 | RADIOLOGY REPORT ---
CHEST RADIOGRAPH Indication: orthopnea Technique: Single frontal view of the chest was obtained Comparison: DI CHEST,SINGLE VIEW on DOS: 05/01/25, DI CHEST,SINGLE VIEW on DOS: 04/02/25, DI CHEST,SING LE VIEW on DOS: 03/18/25 FINDINGS: Lines and Tubes: None. Left-sided approach dual lead pacemaker terminating within right atrium and r ight ventricle. Lungs: Interstitial prominence with perihilar fullness. Obscuration of the left hemidiaphragm No pneumothorax. Cardiomediastinal contours: [id number] cardiomegaly with moderate atherosclerotic calcification and uncoiling of the aorta. Bones: No acute osseous abnormality. IMPRESSION: Cardiomegaly findings suggestive of mild congestive heart failure. Possible small left-sided pleural effusion /atelectasis
[2025-05-06 18:00] VITALS: BP 154/67; PULSE 69; RESP 16; TEMP 97.8; O2SAT 95
--- NOTE | 2025-05-06 20:44 | PROGRESS NOTE ---
Daily Progress Note Providers to CC ~ Antibiotic Timeout Antibiotic Ordered?: Yes Subjective Was going to discharge the patient today however she had multiple complaints and put up multiple barriers to being discharge including being dizzy at rest and with movement she did have mild nystagmus I ordered meclizine however the patient declined a try the medication. The patient complains of not being able to lay flat due to shortness of breath the patient does have HFrEF with the EF of 20% did ordered chest x-ray which showed mild CHF findings. The patient is oxygen saturation is in the high 90s on room air Objective Vital Signs Date Time Temp Pulse Resp B/P (MAP) Pulse Ox O2 Delivery O2 Flow Rate FiO2 05/06/25 18:30 80 05/06/25 18:00 97.8 16 154/67 (96) 95 Room Air 05/06/25 07:30 0.0 21 Result Diagram: 05/06/25 0520 05/06/25 0520 Gen. No acute distress alert and oriented 4 Lungs clear to ascultation bilaterally, no wheezes rales or rhonchi appreciated Heart normal sinus rhythm no murmurs rubs or clicks noted Abdomen soft nontender bowel sounds are normoactive Lower extremities no clubbing cyanosis, bilaterally dressing is in place in the left lower extremity, generalized erythema distally bilaterally, trace bilateral edema Problem\Assessment\Plan A 74-year-old female who is noncompliant with multiple medical comorbidities presented to the ED in view of worsening shortness of breath, bilateral pedal edema and chronic ulcers. Patient is admitted for the management and evaluation of acute exacerbation of CHF and chronic ulcers. Plan: Acute on chronic heart failure with reduced ejection fraction, EF: 20-25% Chronically elevated proBNP ACC/AHA Stage C NYHA: Class III Echo in March,: EF: 20 25%, overall systolic function severely reduced, Multisegmental wall motion abnormalities.RVSP is estimated at 64 mmHg. CXR: Cardiomegaly with mild interstitial pulmonary edema. Left retrocardiac / lower lobe opacity may represent superimposed small left effusion, atelectasis, or infection. IV Lasix 60 mg one time dose given, titrate Lasix as required Strict Is&Os Fluid Restriction: 1.2 L will Consider optimization with GDMT: Patient is already on losartan 25 mg bid, will consider starting on a beta pa, SGLT2 inhibitor and spironolactone. Continue to monitor telemetry 7/25 patient has a couple of episodes of bradycardia thus hold off starting a beta-pa, start Jardiance and stopped losartan and start Entresto 05/06 the patient complains of orthopnea however oxygen saturation remains in the mid-to-high 90s on room air chest x-ray demonstrated mild heart failure Bilateral chronic ulcers & cellulitis- healing well Wound care Started the patient on IV meropenem 1 g q.8h and IV vancomycin pharmacy to dose Consider venous and arterial studies of the patient continues to worsen 05/04 continue IV vancomycin in DC meropenem start IV Rocephin 05/05 continues to improve Chronic kidney disease no signs of an acute kidney injury Elevated BUN and creatinine Continue to monitor BMP Continue IV Lasix as required Acute UTI Urine culture grew out Citrobacter pansensitive On Rocephin Mild Troponinemia Probably secondary to inflammation and CHF Likely type 2 [place] AFib s/p ppm [id number]: 5 Patient is not on any anticoagulation, rhythm/rate controlled medication Continue to monitor under tele monitor HTN On Entresto Hypothyroidism TSH 0.23 decreased levothyroxine to 100 mcg once daily Subclavian artery stenosis Outpatient follow up Likely cause of the patient's dizziness I did offer meclizine for which the patient declined Code status: Full code Diet: Heart healthy DVT prophylaxis: Heparin Disposition: Discharged home in the a.m. Date of Service: May 06, 2025 Billing Provider: ESMER WIGGINS DO Common Visit Codes: [id number] INP/OBS CARE(HIGH) ESMER WIGGINS DO May 06, 2025 20:44
[2025-05-06 22:00] VITALS: BP 145/59; PULSE 55; RESP 16; TEMP 98.1; O2SAT 97
[2025-05-06] MEDS: magnesium hydroxide 30ml (MOM) UD suspension PO PRN (22:19)
[2025-05-07 06:00] VITALS: BP 153/68; PULSE 67; RESP 14; TEMP 98; O2SAT 95
[2025-05-07 10:11] LABS: MEAN PLATELET VOLUME 7.8 FL (7.4-10.4); RED CELL DISTRIBUTION WIDTH 22.1 % (11.5-14.5)
[2025-05-07 10:33] LABS: CREATININE 1.09 MG/DL (0.40-0.90); TOTAL CARBON DIOXIDE 30.6 MMOL/L (24-32); eCRCL 46 ML/MIN; eGFR 49 ML/MIN
[2025-05-07 10:42] LABS: EOSINOPHILS % (MANUAL) 2.0 % (0-6); LYMPHOCYTES % (MANUAL) 25.0 % (21-51); MONOCYTES % (MANUAL) 10.0 % (2-12); NEUTROPHILS % (MANUAL) 63.0 % (42-75)
[2025-05-07 10:43] LABS: ELLIPTOCYTES FEW; PLATELET ESTIMATE NORMAL
[2025-05-07] MEDS ORDERED: SACU1TAB PO (11:23)
[2025-05-07] MEDS ORDERED: LEVO100T9 PO (11:23)
[2025-05-07] MEDS ORDERED: CEFD300C3 PO (11:23)
[2025-05-07] MEDS ORDERED: EMPA10TA PO (11:23)
--- NOTE | 2025-05-07 20:16 | DISCHARGE SUMMARY ---
Discharge Summary Providers to CC ~ Discharge Summary Admission Diagnosis: Acute CHF exacerbation and lower extremity ulcers Hospital Course DATE OF ADMISSION: 05/01/2025 DATE OF DISCHARGE: 05/07/2025 Discharge Diagnosis\\Comment: Type 2 mi, HFrEF acute on chronic, bilateral lower extremity cellulitis, chronic kidney disease, UTI, permanent AFib, hypertension, hypothyroidism, dizziness possibly secondary to subclavian steal syndrome Operations\\Procedures: None Consultants: None Complications: None Condition on DC: Stable New Medications: Cefdinir* (Cefdinir*) 300 Mg Capsule 1 CAP PO Q12H, #8 CAP Empagliflozin (Jardiance) 10 Mg Tablet 10 MG PO DAILY, #30 TAB Levothyroxine Sodium (Levothyroxine Sodium) 100 Mcg Tablet 100 MCG PO DAILY@0700, #30 TAB Sacubitril/Valsartan (Entresto 24 mg-26 mg Tablet) 24 Mg-26 Mg Tablet 1 TABLET PO BID, #60 TAB Continued Medications: Furosemide (Furosemide) 40 Mg Tablet 1 TAB PO BID Discontinued Medications: Levothyroxine Sodium (Levothyroxine Sodium) 125 Mcg Tablet 1 TAB PO DAILY Losartan Potassium (Losartan Potassium) 25 Mg Tablet 1 TAB PO BID Discharge Summary: The patient was admitted by resident physician EMMA Chanel , under the supervision of NAVYA BURROWS MD with the following HPI:"A 74 yr old female who is noncompliant with past medical history of AFib s/p ppm, HFrEF, subclavian artery stenosis presented to the ED in view of worsening shortness of breaths and bilateral lower extremity swelling with ulcers patient states that patient was not even able to walk 20 yd which is the worst over the period of five months. Patient is noncompliant with Lasix especially 80 mg. Patient endorses orthopnea, PND. Patient states that she has small papules that worsened to chronic ulcers with a period of five months. Patient denies chest pain, palpitations, dizziness."For her lower extremity wounds the patient was treated with IV vancomycin IV Rocephin- and her lower extremity wounds improved significantly to the point where on the day discharge the patient was discharged with a prescription for additional four days of cefdinir. The patient also was recommended to get an [id number] probiotic. The patient informs me that she had sleep bites where she was staying and this caused her to have the skin wounds. The patient has a HFrEF with an LVEF of 20 25% the patient was on 20 mg of Lasix b.i.d. IV and was discharged on her home dose of Lasix 40 mg p.o. b.i.d. she does get short of breath when lying flat the patient takes losartan at home which was discontinued and the patient was started on Entresto and Jardiance the patient is not a candidate for a beta-pa as the patient's heart rate on average was not in the 60s and the patient did have a couple of readings in the 40s. I discussed LifeVest for the patient on the day discharge the patient declined a LifeVest informed me she had worn a LifeVest previously however it is too hot in [place] and it was too tight and she did not tolerate wearing a LifeVest. 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 The patient has a slightly suppressed TSH of 0.23- and previously took 125 mcg of levothyroxine this was decreased to 100 mcg and the patient was prescribed levothyroxine for discharge. Gen. No acute distress alert and oriented 4 Lungs clear to ascultation bilaterally, no wheezes rales or rhonchi appreciated Heart normal sinus rhythm no murmurs rubs or clicks noted Abdomen soft nontender bowel sounds are normoactive Lower extremities no clubbing cyanosis, bilaterally dressing is in place in the left lower extremity, generalized erythema distally bilaterally, trace bilateral edema The patient felt ready to be discharged and [facility] The patient was seen and evaluated on day of discharge. Time spent on discharge 40 minutes *Problems/Diagnosis: (1) Cellulitis of lower extremity Total Time Spent on D/C: > 30 Minutes Date of Service: May 07, 2025 Billing Provider: ESMER WIGGINS DO Common Visit Codes: 95467-QTX/OBS DISCH DAY >30min ESMER WIGGINS DO May 07, 2025 20:16
[2025-05-09] MEDS ORDERED: VANCOMYCIN LEVEL IV ONE (03:30)
== END 2025-05-07 12:38 | disposition home or self-care (01) | DRG 280 ==
LOC: ER 17:39 → ED HOLD 20:53 → PCU 3S 23:02 → ORTHO 4S 05-04 11:21
PROVIDERS: ADMIT Internal Medicine Pulmonary Disease; ATTEND Internal Medicine
PROC: 05HC33Z Insertion of Infusion Device into Left Basilic Vein, Percutaneous Approach (ICD-10-PCS; principal; 2025-05-03)
PROC: B54NZZA Ultrasonography of Left Upper Extremity Veins, Guidance (ICD-10-PCS; 2025-05-03)
DX: I13.0 Hypertensive heart and chronic kidney disease with heart failure and stage 1 through stage 4 chronic kidney disease, or unspecified chronic kidney disease (principal); I50.23 Acute on chronic systolic (congestive) heart failure; I21.A1 Myocardial infarction type 2; L03.115 Cellulitis of right lower limb; L03.116 Cellulitis of left lower limb; Z59.00 Homelessness unspecified; N39.0 Urinary tract infection, site not specified; G45.8 Other transient cerebral ischemic attacks and related syndromes; L97.829 Non-pressure chronic ulcer of other part of left lower leg with unspecified severity; L97.819 Non-pressure chronic ulcer of other part of right lower leg with unspecified severity; I48.21 Permanent atrial fibrillation; Q21.10 Atrial septal defect, unspecified; N18.9 Chronic kidney disease, unspecified; I70.8 Atherosclerosis of other arteries; E03.9 Hypothyroidism, unspecified; Z91.148 Patient's other noncompliance with medication regimen for other reason; Z95.0 Presence of cardiac pacemaker; Z79.84 Long term (current) use of oral hypoglycemic drugs
CPT/HCPCS: 36410; 36415; 71045; 76937; 80048; 80053; 80061; 80202; 81001; 82948; 83605; 83735; 83880; 84145; 84443; 84484; 85007; 85008; 85025; 87040; 87077; 87081; 87088; 87186; 93005; 96374; 97116; 97161; 97530; 99285; A4649; A6213; A6250; A6253; A6446; A6449; C1751; G0378; J0696; J1644; J1938; J2185; J3373; J3374; J7030; J7040

== ENCOUNTER 2025-06-07 15:37 | Inpatient (IN) | payer BC ==
[~2025-06-07] VITALS: Ht 175.3 cm; Wt 69.5 kg
[~2025-06-07 15:37] MED LIST changes: -ALBU2.5V10 NEB; -ASPI-1264 PO; -BISM-155 PO; +CEFD300C3 PO; -CYCL-394 PO; -DIPH25CA83 PO; -FLUT1AER INH; -FURO-150 PO; +FURO40TA4 PO; +LEVO100T9 PO; -LEVO75CA6 PO; -LOSA50TA64 PO; -MAGN250T11 PO; -METO-539 PO; +SACU1TAB PO; -SPIR25TA5 PO; -UBID100C16 PO; -VITA0.4T18; -deltasone PO
--- NOTE | 2025-06-07 15:46 | ELECTROCARDIOGRAPH REPORT ---
[facility] Test Date: 2025-06-07 Test Time: 15:42:09 Pat Name: HALIMA HARMON Department: EMERGENCY ROOM Room: Gender: F Doffer: CRISTI : 1950 Requested By: LEONIE GRIFFIN Order Number: [id number] Reading MD: Measurements Intervals [place] Rate: 67 P: 0 NH: 0 QRS: 20 QRSD: 91 T: 206 QT: 516 QTc: 545 Interpretive Statements Afib/flut and V-paced complexes No further analysis attempted due to paced rhythm Please click the below link to view image of tracing.
[2025-06-07 16:02] LABS: MEAN PLATELET VOLUME 7.2 FL (7.4-10.4); RED CELL DISTRIBUTION WIDTH 22.9 % (11.5-14.5)
--- NOTE | 2025-06-07 16:14 | RADIOLOGY REPORT ---
EXAM: DI CHEST,SINGLE VIEW HISTORY: CP COMPARISON: DI CHEST,SINGLE VIEW on DOS: 05/06/25, DI CHEST,SINGLE VIEW on DOS: 05/01/25, DI CHEST,SING LE VIEW on DOS: 04/02/25, DI CHEST,SINGLE VIEW on DOS: 03/18/25 TECHNIQUE: Portable AP view of the chest was performed. FINDINGS: There is mild residual left basilar opacity, with improved aeration in the left lung base compared wi th recent chest x-ray dated 05/06/2025. There is central interstitial prominence. The heart is enlarg ed. The aortic arch is calcific. There is a left chest pacemaker. IMPRESSION: 1. Improved aeration of the left lung base with mild residual opacity which may represent atelectasis , residual pneumonia, or scarring at this point. 2. Cardiomegaly and atherosclerotic vascular disease with central interstitial prominence suggestive of mild CHF.
--- NOTE | 2025-06-07 16:24 | Physician Documentation ---
History of Present Illness ~ Chief Complaint: Shortness of Breath Stated Complaint: SOB/CHEST PAIN Time Seen by MD: 16:23 Primary Medical Doctor: Hospitalist/Resident Service Mode of Arrival: POV HPI 74-year-old female, history of pacemaker earlier this year who presents with shortness of breath and weakness She tells me that ever since she got the pacemaker placed, sometime around November, she has had gradually worsening weakness. She reports exertional shortness of breath to the point where she can barely walk without becoming short of breath and she now become short of breath talking. She did have sig nificant swelling in her legs, but has been taking Lasix in the swelling is slightly improved although she still has swelling in both legs. She reports multiple wounds on her extremities. She has been living in her car primarily. No fevers. No productive cough. No current chest pain. Medication Reconciliation Allergies: Coded Allergies: doxycycline (Verified Allergy, Severe, abdominal pain, 06/07/25) amoxicillin (Verified Allergy, Mild, abdominal pain, 05/01/25) meperidine (Verified Allergy, Mild, confusion, 06/07/25) metronidazole (Verified Allergy, Mild, hives, 06/07/25) broccoli (Verified Allergy, Unknown, 06/07/25) gluten (Unverified Allergy, Unknown, 06/07/25) Uncoded Allergies: BEE STINGS (Allergy, Unknown, 06/07/25) Scheduled Cefdinir* (Cefdinir*), 1 CAP PO Q12H Empagliflozin (Jardiance), 10 MG PO DAILY Furosemide (Furosemide), 1 TAB PO BID, (Reported) Levothyroxine Sodium (Levothyroxine Sodium), 100 MCG PO DAILY@0700 Sacubitril/Valsartan (Entresto 24 mg-26 mg Tablet), 1 TABLET PO BID Past Medical History Patient History: Atrial septal defect MOTHER FH: brain aneurysm FATHER Alcohol Use: Abuse Drug Use: none Lives with: Alone Lives In: Home Occupation: retired Review of Systems Constitutional: Reports: weakness; Denies: fever Respiratory: Reports: SOB with exertion Physical Exam Vital Signs: Temperature: 97.1, Source: Temporal, Heart Rate: 62, Respiratory Rate: 14, BP: 102/54, Pulse Oximetry: 99, Weight: 72.730 Oxygen Flow Rate: 0 Physical Exam General: This is a pleasant and chronically ill-appearing older female HEENT: Atraumatic, oropharynx appears dry Heart: Regular rate and rhythm, normal-appearing peripheral perfusion Lungs: Diminished breath sounds bilateral, normal work of breathing at rest, but she appears short of breath with speaking Extremities: Pitting edema to bilateral lower extremities with multiple scabbed wounds Neuro: Alert and oriented Psychiatric: Calm and cooperative with exam Progress Results/Orders Results/Orders Orders - LEONIE GRIFFIN MD Chest,Single View (06/07/25 15:44) Monitor (06/07/25 15:44) Saline Lock (06/07/25 15:44) Oxygen (06/07/25 15:44) Hs Troponin I W Calculations (06/07/25 17:44) Hs Troponin I W Calculations (06/07/25 18:44) Drug Screen, Urine (06/07/25 16:36) Urinalysis, Cult If Indicated (06/07/25 16:36) Page Hospitalist (06/07/25 16:48) Completed Orders - LEONIE GRIFFIN MD Chest,Single View (06/07/25 15:44) Cbc/Diff (06/07/25 15:44) BMP (06/07/25 15:44) PBNP (06/07/25 15:44) Electrocardiogram (06/07/25 15:44) Hs Troponin I W Calculations (06/07/25 15:44) Vital Signs 06/07/25 06/07/25 06/07/25 15:39 16:14 16:25 Temp 97.1 97.1 Pulse 62 67 Resp 16 14 22 B/P (MAP) 102/54 102/70 (81) Pulse Ox 99 100 O2 Flow Rate 0 0 Laboratory Tests Test 06/07/25 15:52 06/07/25 16:29 White Blood Count 6.3 Red Blood Count 4.20 Hemoglobin 10.8 L Hematocrit 33.7 L Mean Corpuscular Volume 80.2 Mean Corpuscular Hemoglobin 25.8 L Mean Corpuscular Hemoglobin Concent 32.1 L Red Cell Distribution Width 22.9 H Platelet Count 334 Mean Platelet Volume 7.2 L Neutrophils (%) (Auto) 71.1 Lymphocytes (%) (Auto) 15.5 L Monocytes (%) (Auto) 11.6 Eosinophils (%) (Auto) 1.4 Basophils (%) (Auto) 0.4 Neutrophils # (Auto) 4.5 Lymphocytes # (Auto) 1.0 L Monocytes # (Auto) 0.7 Eosinophils # (Auto) 0.1 Basophils # (Auto) 0.0 CBC Comment Platelet Estimate Normal Red Blood Cell Morphology Perf Basophilic Stippling Anisocytosis 3+ Target Cells 1+ [place] Cells Few Elliptocytes Few Sodium Level 137 Potassium Level 3.6 Chloride Level 101 Carbon Dioxide Level 28.8 Anion Gap 7 L Blood Urea Nitrogen 26 H Creatinine 1.73 H Estimated GFR/1.73 m2 29 BUN/Creatinine Ratio 15.0 Glucose Level 94 Calcium Level 8.7 Troponin I High Sensitivity 45 Pro-B-Type Natriuretic Peptide > 66106 H Albumin 3.1 L Chemistry Comments Urine Comment Drug Screen Comment EKG/XRAY/CT/US/VASC/MRI EKG : Additional Comment I personally interpreted the EKG and this shows: Paced rhythm, rate 67, QTC 545 Chest X-Ray : Additional Comments I personally interpreted the x-ray, and it shows: Pulmonary vascular congestion, pacemaker in place, no pneumothorax Consults/PCP Consults/PCP : Additional Comment Consult: I spoke to the internal medicine service, for admission in the hospital Medical Decision Making Additional Infomation The patient presents with exertional shortness of breath, leg swelling and generalized weakness. Per her history and exam this all appears most consistent with congestive heart failure. Her workup confirms this with a severely elevated BNP. Chest x-ray with mild pulmonary edema. Given her significant weakness she will require admission to the hospital for further diuresis and or medication adjustment. Departure Impression: Primary Impression: CHF exacerbation Additional Impressions: Generalized weakness Exertional shortness of breath Referrals: NO PRIMARY CARE PROVIDER (PCP) Signature Scribe Signature: na Attestation: LEONIE Saldana MD Jun 07, 2025 16:24
[2025-06-07 16:27] LABS: PLATELET ESTIMATE NORMAL
[2025-06-07 16:30] LABS: ELLIPTOCYTES FEW
[2025-06-07 16:41] LABS: CREATININE 1.73 MG/DL (0.40-0.90); PRO BRAIN NATRIURETIC PEPTIDE > 30000 PG/ML (0-450); TOTAL CARBON DIOXIDE 28.8 MMOL/L (24-32); eCRCL 29 ML/MIN; eGFR 29 ML/MIN
[2025-06-07 16:57] LABS: LEUKOCYTE ESTERASE ,URINE NEGATIVE (Neg); NITRITES, URINE NEGATIVE (Neg); OCCULT BLOOD,URINE NEGATIVE (Neg)
[2025-06-07 17:02] LABS: UA COLLECTION TYPE VOIDED
[2025-06-07] MEDS ORDERED: LOSA-415 PO (17:16)
[2025-06-07] MEDS ORDERED: SYN0.088T PO (17:19)
[2025-06-07 17:25] LABS: URINE AMPHETAMINE SCREEN NEGATIVE (Neg); URINE BARBITUATE SCREEN NEGATIVE (Neg); URINE BENZODIAZEPINES SCREEN NEGATIVE (Neg); URINE CANNABINOID SCREEN POSITIVE (Neg); URINE COCAINE SCREEN NEGATIVE (Neg); URINE METHADONE SCREEN NEGATIVE (Neg); URINE OPIATE SCREEN NEGATIVE (Neg); URINE PHENCYCLIDINE SCREEN NEGATIVE (Neg)
[2025-06-07] MEDS ORDERED: potassium Cl 20 mEq SR tablet PO PRN ×2 (18:55)
[2025-06-07] MEDS ORDERED: magnesium hydroxide 30ml (MOM) UD suspension PO PRN (18:55)
[2025-06-07] MEDS ORDERED: mag hydrox/Alum hydrox/simeth 30ml oral suspension PO PRN (18:55)
[2025-06-07] MEDS ORDERED: ondansetron/PF 4mg/2ml inj IV PRN (18:55)
[2025-06-07] MEDS ORDERED: magnesium sulf-water 2g/50mL 50 ML IV PRN (18:55)
[2025-06-07] MEDS ORDERED: potassium Cl 40MEQ/1/2NS 520ml 520 ML IV PRN (18:55)
[2025-06-07] MEDS ORDERED: magnesium Cl slow-release 64mg tablet PO PRN (18:55)
[2025-06-07] MEDS ORDERED: magnesium sulf-water 4G/100mL 100 ML IV PRN (18:55)
[2025-06-07 19:02] VITALS: BP 117/69; PULSE 62; RESP 11; TEMP 97.6; O2SAT 99
--- NOTE | 2025-06-07 19:02 | HISTORY AND PHYSICAL-Residence ---
History & Physical Providers to CC Resident Creating Document: EMMA BRIGGS, RES CC: FRANCY CANO MD ~ History of Present Illness Primary Medical Doctor: Hospitalist/Resident Service Reason for Admit\Complaint: Shortness of breaths and lower extremity swelling History of Present Illness A 74-year-old female with PMH of AFib s/p ppm, HFrEF, subclavian artery stenosis presented to the ED in view of shortness of breaths and lower extremity swelling. Patient states that she had gradual worsening of shortness of breaths over the last two weeks described as not being able to walk even 10 years over the last two weeks. Prior to that she was able to walk at least 50 ft before she felt short of breaths. Patient endorses orthopnea and PND. Patient has been noncompliant with Lasix, has decreased the dosage from 40-20 and would sometimes not take it. Patient had similar encounters in the past. Patient was recently discharged from the hospital in April, at the time of discharge patient declined LifeVest despite serious indication, was not being able to start on a beta pa in view of heart rate below 60s at that time. Patient also states that she has not been taking any GDM T medications. Additionally, patient assumes that she has cellulitis of her lower extremities, allthough was adequately treated in the prior admission. Allergies: Coded Allergies: doxycycline (Verified Allergy, Severe, abdominal pain, 06/07/25) amoxicillin (Verified Allergy, Mild, abdominal pain, 05/01/25) meperidine (Verified Allergy, Mild, confusion, 06/07/25) metronidazole (Verified Allergy, Mild, hives, 06/07/25) broccoli (Verified Allergy, Unknown, 06/07/25) gluten (Unverified Allergy, Unknown, 06/07/25) Uncoded Allergies: BEE STINGS (Allergy, Unknown, 06/07/25) Active prescriptions HTN HFrEF Subclavian artery stenosis Hypothyroidism Celiac disease AFib Home Medications Home Medications Active Reported Synthroid* (Levothyroxine Sodium) 88 Mcg Tablet 100 Mcg PO DAILY 30 Days Cozaar* (Losartan Potassium) 25 Mg Tablet 25 Mg PO BID 30 Days Furosemide 40 Mg Tablet 1 Tab PO BID Past Medical History Past Medical History Lumbar diskectomy Appendectomy Tonsillectomy Pacemaker placement in November 2024 Family History Family History: Atrial septal defect MOTHER FH: brain aneurysm FATHER Past Social History Social History Comment Quit 13 years ago, smoked for 40 years Consumes two brandies daily, does not know the strength 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 Chest pressure, chest discomfort, palpitations, syncope, lower extremity edema, paroxysmal nocturnal dyspnea Respiratory: Shortness of breath and cough present, No hemoptysis Gastrointestinal: Normal appetite. No nausea, vomiting, diarrhea, constipation, hematemesis, abdominal pain, bloating, melena or fresh blood Musculoskeletal:chronic edema, seeping of fluid, small ulcers on bilateral feet Integumentary: No change in skin, hair, nails. No swelling, bruising, abrasions Neurologic: No headache, neck pain, numbness or tingling of the extremities, weakness Psychiatric: No delusions, depression, loss of interest in normal activity or change in sleep pattern, hallucinations, suicidal ideations Endocrine: No fatigue, weakness, polydipsia, polyuria, change in appetite, heat or cold intolerance, sweating, dry skin Constitutional: Reports: weakness; Denies: fever Respiratory: Reports: SOB with exertion Exam Vitals: Vital Signs Date Time Temp Pulse Resp B/P (MAP) Pulse Ox O2 Delivery O2 Flow Rate FiO2 06/07/25 17:53 97.1 67 21 131/76 (94) 97 0 General: General: Alert, awake, oriented, not in acute distress HEENT: PERRLA, no icterus, pallor, lymphadenopathy, carotid bruit Respiratory system: Bilateral vesicular breath sounds heard, bilateral basal Creps present, infraclavicular subcutaneous pacemaker present CVS: S1-S2 heard, no murmurs/rubs/gallop GI: Soft, nontender, no organomegaly, no guarding/rigidity, bowel sounds present Neuro: No focal neurological deficits present Extremities: Erythematous, 3+ pitting edema, multiple shallow ulcers present on bilateral lower extremities Skin: Warm and dry Diagnostic Data Last Recorded Lab Results: 06/07/25 1552 06/07/25 1552 Advance Care Planning Advanced Care plannin - 30 Minutes (I spent 20 minutes discussing various resuscitative measures and the patient decided to be full code) Additional Plan Assessment: A 74-year-old female who is noncompliant with multiple medical comorbidities presented to the ED in view of worsening shortness of breath, bilateral pedal edema and chronic ulcers. Patient is admitted for the management and evaluation of acute exacerbation of CHF. Plan: Acute on chronic heart failure with reduced ejection fraction, EF: 20-25% Chronically elevated proBNP ACC/AHA Stage D NYHA: Class IV Medication noncompliance Chronically elevated proBNP Echo in March,: EF: 20 25%, overall systolic function severely reduced, Multisegmental wall motion abnormalities.RVSP is estimated at 64 mmHg. CXR: Improved aeration of the left lung base with mild residual opacity which may represent atelectasis, residual pneumonia, or scarring at this point. C ardiomegaly and atherosclerotic vascular disease with central interstitial prominence suggestive of mild CHF IV Lasix 60 mg one time dose given, IV Lasix 40 mg b.i.d. from tomorrow, titrate Lasix as required Strict Is&Os, fluid restriction: 1.5 L Fluid Restriction: 1.2 L Optimization with GDM T: Patient is already on losartan 25 mg bid, started on Aldactone 25 mg, Jardiance 10 mg once daily, carvedilol 3.125 mg p.o. b.i.d. Continue to monitor telemetry Bilateral chronic pedal edema Multiple shallow ulcers Questionable cellulitis Wound care Probably secondary to noncompliance with medications and heart failure Prerenal ERNESTO probably secondary to renal tubular stasis/cardiorenal syndrome Elevated BUN and creatinine Continue to monitor BMP Continue IV Lasix as required AFib s/p ppm [id number]: 5 Patient is not on any anticoagulation, rhythm/rate controlled medication Re-evaluate in a.m. HTN Continue losartan 25 mg b.i.d. Hypothyroidism TSH in April: 0.23 Continue levothyroxine 125 mcg once daily Subclavian artery stenosis Outpatient follow up Alcohol use disorder Alcohol withdrawal Mild alcohol withdrawal protocol MVT, thiamine, folic acid visitor services information assistant Marijuana use disorder U tox positive for marijuana visitor services information assistant Code status: Full code Diet: Heart healthy DVT prophylaxis: Heparin Disposition: Admit to PCU, monitor I/O, continue to monitor tele Emma Briggs MD Internal Medicine, PGY 2 Date of Service: Jun 07, 2025 Billing Provider: FRANCY CANO MD, SIVA, RES Jun 07, 2025 19:02
[2025-06-07] MEDS ORDERED: haloperidol lactate 5mg/ml inj IM PRN (19:05)
[2025-06-07 19:27] LABS: CREATININE 1.54 MG/DL (0.40-0.90); eCRCL 32 ML/MIN; eGFR 33 ML/MIN
[2025-06-07] MEDS ORDERED: heparin, porcine 5000 units/ml vial SQ SCH (20:00)
[2025-06-07] MEDS: K and/or MAG REPLACEMENT MC SCH (20:00)
[2025-06-07] MEDS: furosemide 10 MG/1 ML 10ml inj IV ONE (20:10)
[2025-06-07] MEDS: docusate sod 100mg capsule PO SCH (20:11)
[2025-06-07] MEDS: heparin, porcine 5000 units/ml vial SQ SCH (20:25)
[2025-06-07 22:00] VITALS: BP 92/44; PULSE 69; RESP 19; TEMP 97.4; O2SAT 98
[2025-06-07] MEDS: thiamine 100mg/ml 2ml inj. IV SCH (22:19)
[2025-06-07] MEDS: PERFLUTREN PROTEIN-A MICROSPHR (Optison) 0.22 MG/ML 3ML VIAL IV ONE (23:05)
[2025-06-08] VITALS (8 sets, daily range): BP systolic 97–145; BP diastolic 45–67; PULSE 62–78; RESP 11–22; TEMP 96.8–98.2; O2SAT 94–100
[2025-06-08 06:10] LABS: MEAN PLATELET VOLUME 7.5 FL (7.4-10.4); RED CELL DISTRIBUTION WIDTH 23.3 % (11.5-14.5)
[2025-06-08 06:18] LABS: CREATININE 1.55 MG/DL (0.40-0.90); TOTAL CARBON DIOXIDE 30.8 MMOL/L (24-32); eCRCL 32 ML/MIN; eGFR 33 ML/MIN
[2025-06-08] MEDS: multivitamins, therapeutics tablet PO SCH (07:24)
[2025-06-08] MEDS: levoTHYROXINE 100mcg tablet PO SCH (07:24)
[2025-06-08] MEDS: furosemide 10 MG/1 ML 10ml inj IV SCH (07:26)
[2025-06-08] MEDS: EMPAGLIFLOZIN 10 MG TABLET PO SCH (08:00)
[2025-06-08] MEDS: hydrocortisone 1% OINTMENT 30gm tube TP PRN (09:39)
--- NOTE | 2025-06-08 10:52 | CARDIOLOGY REPORT ---
APPROVED REPORT EXAM: Limited 2D, Doppler, and color-flow Echocardiogram. Patient Location: [facility] Blood Pressure: 99/62 mmHg Heart Rate: 62 bpm Rhythm: Pced Indications Chest Pain Shortness of Breath ProBNP: >30,000 HX of Congestive Heart Failure Atrial Fibrillation COPD Pacemaker (12/05) EXECUTIVE VICE PRESIDENT: Niraj Van MD Previous ECHO: 03/18/25, [facility], EF: 20-25; mod RVE; sev JAYDEN; m MR; mod TR 2D Dimensions RVDd 3.7 cm LA Diam5.3 cm IVSd 1.2 (0.7-1.1cm) LVDd 5.1 cm PWd 1.4 (0.7-1.1cm) RA Major6.7 cm IVSs 1.3 (0.8-1.2cm) RA Minor6.1 cm LVDs 4.3 (2.5-4.0cm) PWs 1.7 (0.8-1.2cm) LVEF(%) 33.1 (>50%) IVC 23.20 mm FS (%) 15.8 % SV 41.8 ml CO 2.6 L/min Aortic Valve AoV Peak Lorenzo. 91.0 cm/s AO Peak GR. 3.3 mmHg AI P 1/2 Time 592 ms Mitral Valve MV E Velocity 54.9 cm/s MV DECEL TIME 220 ms MV A Velocity 32.6 cm/s E/A Ratio 1.7 Pulmonary Valve PAEDP11.47 mmHg Tricuspid Valve TR P. Velocity 308 cm/s RAP ESTIMATE 15 mmHg TR Peak Gr. 38 mmHg RVSP 53 mmHg LEFT VENTRICLE Normal LV size with (known) severe decreased function. Mild concentric hypertrophy. Multisegmental wa ll motion abnormalities present. LVEF is approximately 25-30%. RIGHT VENTRICLE Right ventricle is mildly dilated with adequate function. Elevated right heart pressures with an RVSP of 53 mmHg. ATRIA Left atrium is severely dilated. Right atrium is severely dilated. Unchanged from previous echo. AORTIC VALVE Trileaflet AV appears mildly sclerotic without stenosis. Mild insufficiency. AV not fully evaluated due to limited exam. MITRAL VALVE Mitral valve leaflets are mildly thickened with mild annular calcification. No stenosis. Mild regurgi tation. MV not fully evaluated due to limited exam. TRICUSPID VALVE The tricuspid valve is normal in structure with moderate regurgitation. PULMONIC VALVE The pulmonary valve is normal in structure with mild insufficiency. GREAT VESSELS IVC is dilated and collapses less than 50% with inspiration. PERICARDIUM Normal pericardium. No effusion. Other Information Study Quality: Adequate Conclusion Normal LV size with (known) severe decreased function. Mild concentric hypertrophy. Multisegmental w all motion abnormalities present. LVEF is approximately 25-30%. Right ventricle is mildly dilated with adequate function. Elevated right heart pressures with an RVS P of 53 mmHg. Left atrium is severely dilated. Right atrium is severely dilated. Unchanged from previous echo. Trileaflet AV appears mildly sclerotic without stenosis. Mild insufficiency. AV not fully evaluate d due to limited exam. Mitral valve leaflets are mildly thickened with mild annular calcification. No stenosis. Mild regur gitation. MV not fully evaluated due to limited exam. The tricuspid valve is normal in structure with moderate regurgitation. Normal pericardium. No effusion.
--- NOTE | 2025-06-08 17:15 | PROGRESS NOTE- Residence ---
Progress Note - Resident Providers to CC Resident Creating Document: EMMA BRIGGS, ADRIANNA CC: FRANCY CANO MD ~ Antibiotic Timeout Antibiotic Ordered?: No Subjective Patient is seen and examined at bedside. Patient states that her shortness of breath is much improved. But patient continues to have crackles at bilateral bases. A last night patient had elevated lactic acid which downtrended with subsequent labs and is now normal. Objective Vital Signs Date Time Temp Pulse Resp B/P (MAP) Pulse Ox O2 Delivery O2 Flow Rate FiO2 06/08/25 11:00 97.2 64 21 136/45 (75) 98 Room Air 06/07/25 17:53 0 Result Diagram: 06/08/25 0506 06/08/25 0506 General: Alert, awake, oriented, not in acute distress HEENT: PERRLA, no icterus, pallor, lymphadenopathy, carotid bruit Respiratory system: Bilateral vesicular breath sounds heard, bilateral basal Creps present (improving), infraclavicular subcutaneous pacemaker present CVS: S1-S2 heard, no murmurs/rubs/gallop GI: Soft, nontender, no organomegaly, no guarding/rigidity, bowel sounds present Neuro: No focal neurological deficits present Extremities: Erythematous, 3+ pitting edema, multiple shallow ulcers present on bilateral lower extremities Skin: Warm and dry Assessment Assessment A 74-year-old female who is noncompliant with multiple medical comorbidities presented to the ED in view of worsening shortness of breath, bilateral pedal edema and chronic ulcers. Patient is admitted for the management and evaluation of acute exacerbation of CHF. Plan Plan Acute on chronic heart failure with reduced ejection fraction, EF: 20-25% Chronically elevated proBNP ACC/AHA Stage D NYHA: Class IV Medication noncompliance Chronically elevated proBNP Echo in March,: EF: 20 25%, overall systolic function severely reduced, Multisegmental wall motion abnormalities.RVSP is estimated at 64 mmHg. IV Lasix 40 mg q.8h, titrate Lasix as required Strict Is&Os, fluid restriction: 1.5 L Negative fluid balance: -2000 mL Optimization with GDM T: Patient is already on losartan 25 mg bid, started on Aldactone 25 mg, Jardiance 10 mg once daily, carvedilol 3.125 mg p.o. b.i.d. Continue to monitor telemetry Bilateral chronic pedal edema Multiple shallow ulcers Questionable cellulitis Wound care Probably secondary to noncompliance with medications and heart failure Patient is not started on antibiotics yet as there is no signs of infection Prerenal ERNESTO probably secondary to renal tubular stasis/cardiorenal syndrome, improving Elevated BUN and creatinine, downtrending Continue to monitor BMP Continue IV Lasix as required AFib s/p ppm [id number]: 5 Patient refuses anticoagulation. HTN Continue losartan 25 mg b.i.d. Hypothyroidism TSH in April: 0.23 Continue levothyroxine 125 mcg once daily Subclavian artery stenosis Outpatient follow up Alcohol use disorder Alcohol withdrawal Mild alcohol withdrawal protocol MVT, thiamine, folic acid legal services professional Marijuana use disorder U tox positive for marijuana legal services professional Code status: Full code Diet: Heart healthy DVT prophylaxis: Heparin Disposition: Continue care in PCU, negative fluid balance of -2000 mL, probable discharge in a day or two Emma Briggs MD Internal Medicine, PGY 2 Date of Service: Jun 08, 2025 Billing Provider: FRANCY CANO MD, SIVA, RES Jun 08, 2025 17:15
[2025-06-08] MEDS: thiamine 100mg/ml 2ml inj. IM ONE (23:21)
[2025-06-09] VITALS (10 sets, daily range): BP systolic 92–139; BP diastolic 52–76; PULSE 61–80; RESP 14–18; TEMP 97–97.9; O2SAT 93–100
[2025-06-09 05:51] LABS: MEAN PLATELET VOLUME 7.5 FL (7.4-10.4); RED CELL DISTRIBUTION WIDTH 23.9 % (11.5-14.5)
[2025-06-09 06:17] LABS: CREATININE 1.41 MG/DL (0.40-0.90); TOTAL CARBON DIOXIDE 28.8 MMOL/L (24-32); eCRCL 35 ML/MIN; eGFR 36 ML/MIN
[2025-06-09 07:53] LABS: PLATELET ESTIMATE NORMAL
[2025-06-09 07:54] LABS: ELLIPTOCYTES 1+
--- NOTE | 2025-06-09 11:52 | RADIOLOGY REPORT ---
CLINICAL HISTORY: possible subclavian steal syndrome. Rule out any acute stroke TECHNIQUE: Helical scanning was performed of the head from the skull base to the vertex. Multiplanar reconstructions were performed. This exam was performed according to our departmental dose optimizat ion program. Up-to-date CT equipment and radiation dose reduction techniques are utilized as appropri ate. CTDI 58.1 DLP 164.5 COMPARISON: None FINDINGS: There is no evidence for acute intracranial hemorrhage, acute ischemic changes, mass, mass effect, or extra-axial fluid collection. There is no hydrocephalus or midline shift. There is no effacement of the cerebral sulci and basal subarachnoid cisterns. The chaudhry-white matter differentiation is well gena ntained. The imaged paranasal sinuses are clear. The sella expanded and empty. IMPRESSION: NO ACUTE INTRACRANIAL ABNORMALITY SEEN.
--- NOTE | 2025-06-09 12:54 | RADIOLOGY REPORT ---
EXAM: CT CT LOWER EXTREMITY INDICATION: chronic non healing wound TECHNIQUE: Axial images of bilateral lower extremities have been obtained along with coronal and sagi ttal reformatted images. All CT scans at this facility use dose modulation, iterative reconstruction, and/or weight based dosing when appropriate to reduce radiation dose to as low as reasonably achieva ble. COMPARISON: None FINDINGS: BONES: No CT evidence of an acute fracture or aggressive osseous lesion. no abnormal osseous erosion, lucency, sclerosis to suggest osteomyelitis. Mild hallux valgus alignment. Diffusely decreased bone mineral density. MUSCLES: No intramuscular fluid collection JOINT SPACES: No joint effusion. chondrocalcinosis along the menisci which may be degenerative versus sequelae of calcium pyrophosphate deposition arthropathy TENDONS/LIGAMENTS: Intact. OTHER: Vascular calcifications. IMPRESSION: 1. No abnormal osseous erosion, lucency, sclerosis to suggest osteomyelitis. 2. If continued clinical concern, recommend MRI
--- NOTE | 2025-06-09 18:00 | VASCULAR REPORT ---
EXAM: VASC VL EMILIA INDICATION: Pain TECHNIQUE: Grayscale, pulsed Doppler, and color Doppler interrogation of the bilateral lower extremit y system was performed from the common femoral arteries to the foot. EMILIA then performed per standard protocol. COMPARISON: None available at the time of dictation. FINDINGS: RIGHT SIDE EMILIA: Segmental pressure of the brachial artery is 132 mmHg. Segmental pressure of the posterior tibial artery is 52 mmHg. Ankle-brachial index measures 0.39 LEFT SIDE EMILIA: Unable to be obtained due to wound in pain LAB STANDARDS FOR ANKLE-BRACHIAL INDEX: Normal: 0.95- 1.00 Abnormal: 0.75-0.95 Multilevel disease: 0.30- 0.75 Severe: Less than 0.3 LAB STANDARDS FOR TOE-BRACHIAL INDEX: Normal: Greater than 0.8 Borderline: 0.51-0.79 Abnormal: 0.20-0.50 Severe: Less than 0.2 IMPRESSION: 1. Imaging evaluation. 2. Severe right peripheral arterial disease. 3. Unable to evaluate left lower extremity.
--- NOTE | 2025-06-09 18:42 | PROGRESS NOTE- Residence ---
Progress Note - Resident Providers to CC Resident Creating Document: MANDA KAY RES ~ Antibiotic Timeout Antibiotic Ordered?: Yes Subjective Patient seen and examined today. She is comfortably resting in the bed. No orthopnea. Complains of shortness of breaths when she walks around. Has no PCP and is coming from a motel. Has had left lower extremity wound for about 4-5 months now and mentioned that he had developed from significant leg swelling. Denies any IV drug abuse. Was admitted for pneumonia few months back at [facility]. Mentioned that she got a pacemaker placed earlier this year. Noncompliant with medications. Telemetry showed a flutter with CVR, V paced rhythm. SBP of left upper extremity around 90 mmHg and SBP of right upper extremity around 120-140 mmHg. Objective Vital Signs Date Time Temp Pulse Resp B/P (MAP) Pulse Ox O2 Delivery O2 Flow Rate FiO2 06/09/25 15:00 97.3 64 14 136/52 (80) 100 Room Air 101/64 (76) 06/07/25 17:53 0 Result Diagram: 06/09/25 0458 06/09/25 0458 General: Alert and oriented x 4 HEENT: Normocephalic and atraumatic. Pupils equal round and reactive to light and accommodation. Extraocular movements intact. Oral and nasal mucosa moist Neck: Trachea is in midline. No masses or JVD Lungs: Bilateral mildly decreased breath sounds. Bilateral basal crackles present. No rhonchi or wheezes Heart: Irregularly irregular rhythm. Regular rate. No rubs or murmurs Abdomen: Soft, nontender and nondistended. Bowel sounds present OPERATIONS INTELLIGENCE: No gross sensory or motor abnormalities. CN II to XII grossly intact Extremities: Bilateral 1+ pedal edema. About 2 cm open wound on left lower extremity with the yellowish slough. No significant erythema or tenderness around it. It has a chronic wound. Multiple shallow ulcers on bilateral lower extremities. No cyanosis, clubbing. Decreased radial pulse in the left side Skin: As above Assessment Assessment A 74-year-old female who is noncompliant with multiple medical comorbidities presented to the ED in view of worsening shortness of breath, bilateral pedal edema and chronic ulcers. Patient is admitted for the management and evaluation of acute exacerbation of CHF. Plan Plan Acute on chronic heart failure with reduced ejection fraction, EF: 20-25% Chronically elevated proBNP ACC/AHA Stage D NYHA: Class IV Medication noncompliance Chronically elevated proBNP Echo in March,: EF: 20 25%, overall systolic function severely reduced, Multisegmental wall motion abnormalities.RVSP is estimated at 64 mmHg. Decrease Lasix to 40 mg IV b.i.d. Strict Is&Os, fluid restriction: 1.5 L Continue Coreg 3.125 mg p.o. b.i.d., losartan 25 mg p.o. daily. Decreased spironolactone to 12.5 mg p.o. daily. Discontinue Jardiance 10 mg p.o. daily due to underlying ERNESTO and soft blood pressure Telemetry showed a flutter with CVR, V paced rhythm Severe peripheral arterial disease Left lower extremity chronic nonhealing wound No acute occlusive symptoms like cyanosis, pain at rest Continue wound care CT did not show any cellulitis Arterial ultrasound showed severe right lower extremity PAD. EMILIA 0.39. Left lower extremity could not be evaluated Vascular surgeon not available on-call over the weekend. Patient has no acute vascular occlusive symptoms/signs Given aspirin 325 mg p.o. once Started aspirin 81 mg p.o. daily LDL on 05/02/2025 -64 Started Lipitor 40 mg p.o. daily Prerenal ERNESTO probably secondary to renal tubular stasis/cardiorenal syndrome, improving Elevated BUN and creatinine, downtrending Continue to monitor BMP Continue IV Lasix as required AFib s/p ppm [id number]: 5 Telemetry showed a flutter with CVR, V paced rhythm Started Eliquis 5 mg p.o. b.i.d. Possible subclavian steal syndrome Hypertension and right upper extremity Chest CTA on 04/07/2025 showed greater than 50% stenosis of the proximal left subclavian artery Continue losartan 25 mg b.i.d.. Soft blood pressure of left upper extremity Requires outpatient cardiology follow up Hypothyroidism TSH in April: 0.23 Continue levothyroxine 125 mcg once daily Alcohol use disorder Alcohol withdrawal Mild alcohol withdrawal protocol MVT, thiamine, folic acid sales agent business services Marijuana use disorder U tox positive for marijuana sales agent business services Code status: Full code Diet: Heart healthy DVT prophylaxis: Heparin Disposition: Discharge tomorrow in a.m.. Requires outpatient wound care follow up. Requires outpatient vascular surgeon follow up. Confirm that she has a LifeVest Manda Kay MD Internal Medicine Resident, PGY 3 Date of Service: Jun 09, 2025 Billing Provider: FRANCY CANO MD, MANOJNA RES Jun 09, 2025 18:42
--- NOTE | 2025-06-09 19:43 | CONSULTATION ---
DATE OF CONSULTATION: 06/09/2025 DICTATING PHYSICIAN: ETIENNE TAMEZ DO REFERRING PHYSICIAN: Residency service. CHIEF COMPLAINT: Weakness and dyspnea. CLINICAL HISTORY: This 74-year-old woman was admitted on 06/07/2025. Her principal complaint was extreme weakness, dizziness, inability to walk more than 10 yards, and dyspnea. Prior to early 2021, there was no history for a cardiac disorder; however, she developed progressive weakness prompting hospitalization at [facility] in early 11/2024. According to her, she had an echocardiogram demonstrating an ejection fraction of 30%, which for some reason prompted a pacemaker by the cardiac hospitalists. However, records from [facility] reveal the LVEF was 40-45%. She had poorly controlled AF which was very sensitive to beta blockers, hence the pacemaker. She was then discharged to a convalescent facility, where she developed pneumonia, prompting a readmission to [facility] for management of the pneumonia. Since then, she has not been aware of any significant improvement in her strength, and in recent weeks, she has become weaker, more dyspneic, and has developed lower extremity edema. She has previously been prescribed furosemide 40 mg twice a day, but she gets marked swings in her weight with use of that amount of diuretic as well as symptoms of lightheadedness. PAST MEDICAL HISTORY: ALLERGIES: THERE IS A QUESTIONABLE ALLERGY TO DOXYCYCLINE MANIFESTED EYE SENSITIVITY, WHICH IS A KNOWN REGULAR SIDE EFFECT OF THE DRUG. HER OTHER ALLERGIES INCLUDE AMOXICILLIN, MEPERIDINE, AND METRONIDAZOLE. MEDICAL PROBLEMS: There is a history of atrial fibrillation, which is now presumed to be chronic since it was first made approximately about 3 years ago. She has never taken an oral anticoagulant because she thinks that she bleeds and bruises too easily, even when taking a baby aspirin. Other medical problems have included hypertension, left subclavian artery stenosis, hypothyroidism, and celiac disease. PREVIOUS SURGERIES: Include the pacemaker as noted. Previous other surgeries include tonsillectomy and appendectomy as a youth. She has also had a lumbar diskectomy, but age or years performed is not recalled. REVIEW OF SYSTEMS: Otherwise unremarkable. PHYSICAL EXAMINATION: VITAL SIGNS: Blood pressure 136/52, pulse 64, respiratory rate 14 and not labored, temp 97.3. NECK: She has no JVD and no carotid bruits. CHEST: She has crackles at both bases, but she has good air movement. CARDIAC: Apical impulse is not markedly displaced. The first and second heart sounds were single. There is no clear-cut murmur, gallop, or rub. ABDOMEN: Soft and nontender. No organomegaly. No masses. EXTREMITIES: No edema, although she is wearing compression stockings below the knee. Foot pulses not readily visible. The EKG demonstrates atrial fibrillation with 100% ventricular pacing. Lab work today demonstrated a sodium of 137, potassium 3.8, CO2 content 28.8, creatinine 1.1, BUN 30, glucose was 104, magnesium 2.2, albumin 2.8. White cell count 5600, hemoglobin 10.3, hematocrit 31.8, MCV 80, platelet count 324,000. She has a reasonably normal white cell differential. An echocardiogram demonstrates an ejection fraction not better than about 30%. The left ventricle is not dilated and wall motion is slightly dyssynergic. Her end diastolic dimension was only 4.3 cm. There was mild concentric hypertrophy. There was minor aortic and mitral regurgitation and mild to moderate TR. Estimated right ventricular systolic pressure was 53 mmHg. ASSESSMENT: * Chronic atrial fibrillation, ventricular response, ventricular conduction being well controlled. * Congestive heart failure without dilation of the left ventricle. LV function has claerly declined in keeping with constant RV pacing. The mainstay of her ongoing therapy needs to be beta blockade and diuretic therapy. Records from [facility] will be requested and her pacemaker should be interrogated to see how frequently she is pacing the right ventricle. If the right ventricle is paced most of the time, the patient would benefit from an upgrade of her device to a biventricular pacemaker. ETIENNE TAMEZ DO TID: [id number] RECEIPT: [id number] DOYLE/CHANDRAKANT GREGORY
[2025-06-10] VITALS (8 sets, daily range): BP systolic 94–135; BP diastolic 53–70; PULSE 60–66; RESP 10–22; TEMP 97.6–98.5; O2SAT 93–100
[2025-06-10 06:20] LABS: APTT 25 SECONDS (22-32); INR 1.1 INR
[2025-06-10 06:37] LABS: CREATININE 1.44 MG/DL (0.40-0.90); TOTAL CARBON DIOXIDE 24.8 MMOL/L (24-32); eCRCL 35 ML/MIN; eGFR 35 ML/MIN
[2025-06-10 07:01] LABS: MEAN PLATELET VOLUME 7.6 FL (7.4-10.4); RED CELL DISTRIBUTION WIDTH 23.8 % (11.5-14.5)
[2025-06-10] MEDS: aspirin 81mg, enteric-coated 1 TAB TABLET.DR PO SCH (09:14)
--- NOTE | 2025-06-10 13:44 | PROGRESS NOTE ---
Progress Note Cardiology Providers to CC ~ Subjective Subjective comfortable Objective Vitals VSS Result Diagram: 06/10/2551606/10/25516 Objective [facility] records clarify reason for pacemaker in 2024. LVEF has fallen from 40-45% tpo 30% secondary to constant RV pacing. Coagulation Studies Laboratory Tests Test 06/10/25 05:17 Prothrombin Time 11.2 SECONDS (9.0-12.0) INR International Normalized Ratio 1.1 INR Activated Partial Thromboplast Time 25 SECONDS (22-32) Coagulation Comments Problem\Assessment\Plan Additional Plan She needs her pacer upgraded to a biventricular device. The reason for the upgrade was presented to the pt. Plan to proceed on 06/11/25. ETIENNE TAMEZ DO Jun 10, 2025 13:44
--- NOTE | 2025-06-10 17:15 | PROGRESS NOTE- Residence ---
Progress Note - Resident Providers to CC Resident Creating Document: EMMA AGUAYO, RES CC: FRANCY CANO MD ~ Antibiotic Timeout Antibiotic Ordered?: No Subjective Patient is seen and examined today. Patient has shortness of breaths is much improved. But patient continues to complain that she is unable to walk farther due to shortness of breaths. PT evaluated her and has cleared her for discharge to previous living situation. Patient would like to appeal. Dr. Sanchez had discussed about probable change in pacemaker in view of low EF and continuously pacing that requires interrogation. Vascular ultrasound revealed severe right peripheral arterial disease that has currently requiring surgery consultation. Objective Vital Signs Date Time Temp Pulse Resp B/P (MAP) Pulse Ox O2 Delivery O2 Flow Rate FiO2 06/10/25 16:30 97.8 66 16 135/61 (85) 100 Room Air 0.0 Result Diagram: 06/10/2551606/10/25516 General: Alert, awake, oriented, not in acute distress HEENT: PERRLA, no icterus, pallor, lymphadenopathy, carotid bruit Respiratory system: Bilateral vesicular breath sounds heard, bilateral basal Creps present (improving), infraclavicular subcutaneous pacemaker present CVS: S1-S2 heard, no murmurs/rubs/gallop GI: Soft, nontender, no organomegaly, no guarding/rigidity, bowel sounds present Neuro: No focal neurological deficits present Extremities: Erythematous, 3+ pitting edema, multiple shallow ulcers present on bilateral lower extremities Skin: Warm and dry Coagulation Studies Laboratory Tests Test 06/10/25 05:17 Prothrombin Time 11.2 SECONDS (9.0-12.0) INR International Normalized Ratio 1.1 INR Activated Partial Thromboplast Time 25 SECONDS (22-32) Coagulation Comments Assessment Assessment A 74-year-old female who is noncompliant with multiple medical comorbidities presented to the ED in view of worsening shortness of breath, bilateral pedal edema and chronic ulcers. Patient is admitted for the management and evaluation of acute exacerbation of CHF. On 06/09/2025, vascular ultrasound reveals severe right peripheral arterial disease. Plan Plan Acute on chronic heart failure with reduced ejection fraction, EF: 20-25% Chronically elevated proBNP ACC/AHA Stage D NYHA: Class IV Medication noncompliance Chronically elevated proBNP Echo in March,: EF: 20 25%, overall systolic function severely reduced, Multisegmental wall motion abnormalities.RVSP is estimated at 64 mmHg. Continue IV Lasix to 40 mg IV b.i.d. titrate Lasix as required Strict Is&Os, fluid restriction: 1.5 L Continue Coreg 3.125 mg p.o. b.i.d., losartan 25 mg p.o. daily, spironolactone 12.5 mg p.o. daily. Discontinue Jardiance 10 mg p.o. daily due to underlying ERNESTO and soft blood pressure On 06/09, Telemetry showed a flutter with CVR, V paced rhythm Severe peripheral arterial disease Left lower extremity chronic nonhealing wound No acute occlusive symptoms like cyanosis, pain at rest Continue wound care Arterial ultrasound showed severe right lower extremity PAD. EMILIA 0.39. Left lower extremity could not be evaluated Vascular surgeon not available on-call over the weekend. Patient has no acute vascular occlusive symptoms/signs. Awaiting surgeon's consultation and recommendations Continue aspirin 81 mg p.o. daily and Lipitor 40 mg p.o. daily Prerenal ERNESTO probably secondary to renal tubular stasis/cardiorenal syndrome, improving Elevated BUN and creatinine, downtrending Continue to monitor BMP Continue IV Lasix as required AFib s/p ppm [id number]: 5 Telemetry showed a flutter with CVR, V paced rhythm Continue Eliquis [address] DORAN would like to upgrade the pacemaker to biventricular device on 06/11/2025 Possible subclavian steal syndrome Hypertension and right upper extremity Chest CTA on 04/07/2025 showed greater than 50% stenosis of the proximal left subclavian artery Continue losartan 25 mg once daily. Soft blood pressure of left upper extremity Benefits with outpatient cardiology follow up Hypothyroidism TSH in April: 0.23 Continue levothyroxine 125 mcg once daily Alcohol use disorder Alcohol withdrawal Mild alcohol withdrawal protocol MVT, thiamine, folic acid director human services Marijuana use disorder U tox positive for marijuana director human services Code status: Full code Diet: Heart healthy DVT prophylaxis: Heparin Disposition: Scheduled for upgrading ppm on 06/11/2025. Awaiting surgeon consultation for severe right PAD Emma Aguayo MD Internal Medicine, PGY 2 Date of Service: Jun 10, 2025 Billing Provider: FRANCY CANO MD, SIVA, RES Jun 10, 2025 17:15
[2025-06-11] VITALS (9 sets, daily range): BP systolic 96–134; BP diastolic 49–77; PULSE 60–71; RESP 12–16; TEMP 96.9–97.9; O2SAT 91–99
[2025-06-11 07:50] LABS: MEAN PLATELET VOLUME 7.5 FL (7.4-10.4); RED CELL DISTRIBUTION WIDTH 23.3 % (11.5-14.5)
[2025-06-11 07:56] LABS: APTT 25 SECONDS (22-32); INR 1.1 INR
[2025-06-11 08:08] LABS: CREATININE 1.70 MG/DL (0.40-0.90); TOTAL CARBON DIOXIDE 31.0 MMOL/L (24-32); eCRCL 29 ML/MIN; eGFR 29 ML/MIN
[2025-06-11 09:16] LABS: PLATELET ESTIMATE NORMAL
[2025-06-11 09:17] LABS: ELLIPTOCYTES FEW
--- NOTE | 2025-06-11 11:08 | ELECTROCARDIOGRAPH REPORT ---
[facility] Test Date: 2025-06-11 Test Time: 11:05:39 Pat Name: HALIMA HARMON Department: [facility] 3S Patient ID: [facility]-[id number] Room: [place] [id number] B Gender: F Radiation Control Health Physicist: KATHE : 1950 Requested By: CANDICE SHIELDS Order Number: [id number] Reading MD: Dr. Sunday Alexandre Measurements Intervals [place] Rate: 87 P: 0 OH: 0 QRS: -84 QRSD: 161 T: 95 QT: 456 QTc: 549 Interpretive Statements Afib/flutter and ventricular-paced rhythm No further analysis attempted due to paced rhythm Electronically Signed On 06-11-2025 12:33:[address] Sunday Alexandre Please click the below link to view image of tracing.
[2025-06-11] MEDS: ceFAZolin/D5W- 1GM premix 50 ML IV SCH (11:47)
--- NOTE | 2025-06-11 12:07 | PROGRESS NOTE ---
Progress Note Cardiology Providers to CC ~ Subjective Subjective No complaints. Very Talkative Objective Result Diagram: 06/11/2570506/11/25705 Objective Chest clear I/O -1300 no leg edema Coagulation Studies Laboratory Tests Test 06/11/25 07:06 Prothrombin Time 10.9 SECONDS (9.0-12.0) INR International Normalized Ratio 1.1 INR Activated Partial Thromboplast Time 25 SECONDS (22-32) Coagulation Comments Problem\Assessment\Plan Additional Plan Pacer upgrade on schedule for 0700 tomorrow AM Suggest the Lasix be decreased ETIENNE TAMEZ DO Jun 11, 2025 12:07
--- NOTE | 2025-06-11 14:22 | PROGRESS NOTE ---
Progress Note ID Providers to CC ~ Progress Note Progress Note: Dr. Sanchez aware of pad and will manage GODWIN DREW MD Jun 11, 2025 14:22
--- NOTE | 2025-06-11 15:12 | PROGRESS NOTE- Residence ---
Progress Note - Resident Providers to CC Resident Creating Document: EMMA AGUAYO, ADRIANNA CC: FRANCY CANO MD ~ Antibiotic Timeout Antibiotic Ordered?: No Subjective Patient is seen and examined today. Patient is lungs are much clear today. Patient is scheduled for pacemaker change today. We consulted Dr. Mckeon in view of right lower extremity PAD. Objective Vital Signs Date Time Temp Pulse Resp B/P (MAP) Pulse Ox O2 Delivery O2 Flow Rate FiO2 06/11/25 11:00 97.7 61 15 134/68 (90) 95 Room Air 06/10/25 16:30 0.0 Result Diagram: 06/11/25 0706 06/11/25 0706 General: Alert, awake, oriented, not in acute distress HEENT: PERRLA, no icterus, pallor, lymphadenopathy, carotid bruit Respiratory system: Bilateral vesicular breath sounds heard, bilateral basal Creps present (improved), infraclavicular subcutaneous pacemaker present CVS: S1-S2 heard, no murmurs/rubs/gallop GI: Soft, nontender, no organomegaly, no guarding/rigidity, bowel sounds present Neuro: No focal neurological deficits present Extremities: Erythematous, 3+ pitting edema, multiple shallow ulcers present on bilateral lower extremities Skin: Warm and dry Coagulation Studies Laboratory Tests Test 06/11/25 07:06 Prothrombin Time 10.9 SECONDS (9.0-12.0) INR International Normalized Ratio 1.1 INR Activated Partial Thromboplast Time 25 SECONDS (22-32) Coagulation Comments Assessment Assessment A 74-year-old female who is noncompliant with multiple medical comorbidities presented to the ED in view of worsening shortness of breath, bilateral pedal edema and chronic ulcers. Patient is admitted for the management and evaluation of acute exacerbation of CHF. On 06/09/2025, vascular ultrasound reveals severe right peripheral arterial disease. Plan Plan Acute on chronic heart failure with reduced ejection fraction, EF: 20-25% Chronically elevated proBNP ACC/AHA Stage D NYHA: Class IV Medication noncompliance Chronically elevated proBNP Echo in March,: EF: 20 25%, overall systolic function severely reduced, Multisegmental wall motion abnormalities.RVSP is estimated at 64 mmHg. Changed IV Lasix to 20 mg IV b.i.d. titrate Lasix as required Strict Is&Os, fluid restriction: 1.5 L Continue Coreg 3.125 mg p.o. b.i.d., losartan 25 mg p.o. daily, spironolactone 12.5 mg p.o. daily. Discontinue Jardiance 10 mg p.o. daily due to underlying ERNESTO and soft blood pressure On 06/09, Telemetry showed a flutter with CVR, V paced rhythm Severe peripheral arterial disease Left lower extremity chronic nonhealing wound No acute occlusive symptoms like cyanosis, pain at rest Continue wound care Arterial ultrasound showed severe right lower extremity PAD. EMILIA 0.39. Left lower extremity could not be evaluated Dr. Mckeon ordered MRA abdomen and pelvis Continue aspirin 81 mg p.o. daily and Lipitor 40 mg p.o. daily Prerenal ERNESTO probably secondary to renal tubular stasis/cardiorenal syndrome, improving Elevated BUN and creatinine, up trending Continue to monitor BMP Continue IV Lasix as required AFib s/p ppm [id number]: 5 Telemetry showed a flutter with CVR, V paced rhythm Continue Eliquis 5 mg p.o. b.i.d. Scheduled for upgrade of pacemaker to biventricular device by Dr. 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 Soft blood pressure of left upper extremity Benefits with outpatient cardiology follow up Hypothyroidism TSH in April: 0.23 Continue levothyroxine 125 mcg once daily Alcohol use disorder Alcohol withdrawal Mild alcohol withdrawal protocol MVT, thiamine, folic acid branch services manager Marijuana use disorder U tox positive for marijuana branch services manager Code status: Full code Diet: Heart healthy DVT prophylaxis: Heparin Disposition: Scheduled for upgrading ppm on 06/11/2025. Awaiting surgeon recommendations for severe right PAD following MRA abdomen and pelvis Emma Aguayo MD Internal Medicine, PGY 2 Date of Service: Jun 11, 2025 Billing Provider: FRANCY CANO MD,EMMA, RES Jun 11, 2025 15:12
[2025-06-12] VITALS (17 sets, daily range): BP systolic 124–150; BP diastolic 66–80; PULSE 60–80; RESP 9–20; TEMP 97.4–98.6; O2SAT 89–100
[2025-06-12] MEDS: sodium bicarbonate (8.4%) inj. 1 MEQ/ML ML ONE (05:59)
[2025-06-12] MEDS: WATER IV ONE (06:00)
[2025-06-12] MEDS: DEXTROSE 5% IV ONE (06:00)
[2025-06-12] MEDS: SODIUM BICARBONATE IV ONE (06:00)
[2025-06-12 06:14] LABS: CREATININE 1.43 MG/DL (0.40-0.90); TOTAL CARBON DIOXIDE 31.6 MMOL/L (24-32); eCRCL 35 ML/MIN; eGFR 36 ML/MIN
[2025-06-12 06:16] LABS: INR 1.0 INR
[2025-06-12] MEDS ORDERED: fentaNYL/PF 50MCG/1 ML 2ML syringe ONE (06:22)
[2025-06-12] MEDS ORDERED: midazolam 1 mg/ML 2ml injection ONE (06:22)
[2025-06-12] MEDS ORDERED: LIDOcaine 1% W/epiNEPHrine 1:100,000 20ml vial ONE (06:22)
[2025-06-12 06:23] LABS: MEAN PLATELET VOLUME 7.4 FL (7.4-10.4); RED CELL DISTRIBUTION WIDTH 23.4 % (11.5-14.5)
[2025-06-12] MEDS ORDERED: vancomycin 1,000mg inj ONE (06:31)
[2025-06-12] MEDS ORDERED: iohexol 350 MG/ML 50ML vial IV ONE (07:15)
[2025-06-12] MEDS: vancomycin/NS 1 GM ADD-VANTAGE 250 ML X 1 DOSE IV ONE (09:14)
--- NOTE | 2025-06-12 09:33 | RADIOLOGY REPORT ---
EXAM: DI CHEST,SINGLE VIEW Indication: post op pacemaker placement Technique: Single frontal view of the chest was obtained Comparison: DI CHEST,SINGLE VIEW on DOS: 06/07/25, DI CHEST,SINGLE VIEW on DOS: 05/06/25, DI CHEST,SING LE VIEW on DOS: 05/01/25, DI CHEST,SINGLE VIEW on DOS: 04/02/25, DI CHEST,SINGLE VIEW on DOS: 03/18/25 FINDINGS: Lines and Tubes: Cardiac pacemaker projects over left chest wall. Lungs: No focal consolidation. Pleura: No effusion. No pneumothorax. Cardiomediastinal contours: Unremarkable. Atherosclerotic vascular calcifications of the thoracic ao rta are noted. Bones: No acute osseous abnormality. IMPRESSION: No acute cardiopulmonary disease.
--- NOTE | 2025-06-12 09:41 | CARDIOLOGY REPORT ---
DATE OF SERVICE: 06/12/2025 DICTATING PHYSICIAN: ETIENNE TAMEZ DO CARDIAC CATHETERIZATION REPORT REFERRING PHYSICIAN: Etienne Tamez DO PROCEDURES PERFORMED: * Removal of existing pacemaker pulse generator. * Pacemaker pocket revision. * Coronary venography. * Placement of a coronary venous/LV electrode. * Implant of a biventricular pulse generator. * Conscious sedation supervision 75 minutes. PREOPERATIVE DIAGNOSES: * Pacemaker for marked bradycardia secondary to management of atrial fibrillation. * Chronic atrial fibrillation. * Cardiomyopathy due to constant right ventricular pacing. POSTOPERATIVE DIAGNOSES: * Pacemaker for marked bradycardia secondary to management of atrial fibrillation. * Chronic atrial fibrillation. * Cardiomyopathy due to constant right ventricular pacing. CLINICAL HISTORY: This is a 74-year-old woman. This patient has had chronic atrial fibrillation for at least the last 3 years. She was admitted to [facility] in 11/2024 because of generalized fatigue and lower extremity edema. An echocardiogram demonstrated an ejection fraction of 40-45%. The ventricular response to her atrial fibrillation was poorly controlled; however, use of rate-regulating medicines was associated with intermittent severe bradycardia, prompting placement of a dual-chamber pacemaker. She is now admitted to [facility] with recurrence of fatigue, exertional dyspnea and lower extremity edema. An echocardiogram during this admission demonstrates a decline in the ejection fraction from 40-45% down to 30%. ANESTHESIA: Conscious sedation with local to skin. DEVICE REMOVED: Medtronic dual-chamber pulse generator model number W1DR01 and serial number [id number]. EXISTING ELECTRODES: Medtronic RV electrode, model number 4074 and serial number [id number]; Medtronic atrial electrode model number 4076 and serial number [id number]. DEVICES IMPLANTED: Medtronic coronary venous/LV electrode model number 4798 and serial number [id number]; Medtronic biventricular pacemaker pulse generator model number W4TR03 and serial number [id number]. DESCRIPTION OF PROCEDURE: The patient was sedated with fentanyl and Versed. She was then prepared and draped in the usual manner. The pacemaker pocket was opened by incising diagonally across the generator. The generator was exposed. Approximately 50% of the scarified pocket was excised and the generator was easily removed from the pocket. Then using a micropuncture set, a small guidewire was placed in the subclavian vein and using a size-up sheath, a 0.035 guidewire and a 9-Luxembourger dilator and sheath assembly were placed in the central venous circulation. The dilator and wire were removed and an 8-Luxembourger extended multipurpose command select catheter was positioned in the coronary sinus. Coronary venography was then performed. A satisfactory mid lateral coronary vein was identified and the left ventricular electrode was positioned in this branch vessel. Sensing and pacing evaluation demonstrated an impedance of 456 ohms and a capture threshold of 1 volt at 1 millisecond. The right ventricular electrode was evaluated. The R-wave amplitude was 16 millivolts. The impedance was 646 ohms and the threshold for capture was 0.5 volts. The old electrodes were then switched over to the new biventricular pulse generator. A subpectoral pocket was created and the electrodes and pulse generator were positioned in this space. A TYRX pouch was also placed in the pocket. The pocket was then irrigated with a vancomycin antibiotic solution. The pocket was closed loosely with 3-0 Vicryl sutures. The subcutaneous layer was closed with interrupted Vicryl sutures and the skin was approximated with 4-0 Monocryl. Estimated blood loss for the procedure was approximately 5 mL. There were no complications. Sukhwinder parameter settings: Pacing mode was DDDR, LRL 60 BPM, upper activity 120 BPM, upper tracking rate 130 BPM, paced AV delay 130 milliseconds, sensed AV delay 100 milliseconds. Amplitude and pulse width on all three electrodes was set at 3.5 volts and 0.4 milliseconds. Atrial sensitivity is set at 0.3 millivolts and right ventricular sensitivity is set at 0.9 millivolts. A chest x-ray was pending at the time of this dictation. ETIENNE TAMEZ DO TID: [id number] RECEIPT: [id number] DOYLE/MARCI/RACHANA GREGORY
[2025-06-12] MEDS: ciprofloxacin lact 400MG/200ML 200 ML IV SCH (12:44)
[2025-06-12] MEDS: HYDROcodone/acetaminophen 5mg/325mg tablet PO PRN (13:22)
--- NOTE | 2025-06-12 17:05 | PROGRESS NOTE- Residence ---
Progress Note - Resident Providers to CC Resident Creating Document: EMMA AGUAYO RES CC: FRANCY CANO MD ~ Antibiotic Timeout Antibiotic Ordered?: Yes Subjective Patient is seen and examined today. Patient underwent up grade of pacemaker with AICD placement today. Patient's cultures tested positive for Pseudomonas and MRSA. Objective Vital Signs Date Time Temp Pulse Resp B/P (MAP) Pulse Ox O2 Delivery O2 Flow Rate FiO2 06/12/25 15:42 16 06/12/25 11:00 97.4 60 149/75 (99) 100 Room Air 06/10/25 16:30 0.0 Result Diagram: 06/12/2537 06/12/25536 General: Drowsy and sleeping HEENT: PERRLA, no icterus, pallor, lymphadenopathy, carotid bruit Respiratory system: Bilateral vesicular breath sounds heard, bilateral basal Creps present (improved), infraclavicular subcutaneous pacemaker present CVS: S1-S2 heard, no murmurs/rubs/gallop GI: Soft, nontender, no organomegaly, no guarding/rigidity, bowel sounds present Neuro: No focal neurological deficits present Extremities: Erythematous, 3+ pitting edema, multiple shallow ulcers present on bilateral lower extremities Skin: Warm and dry Coagulation Studies Laboratory Tests Test 06/11/25 07:06 06/12/25 05:37 Activated Partial Thromboplast Time 25 SECONDS (22-32) Prothrombin Time 10.7 SECONDS (9.0-12.0) INR International Normalized Ratio 1.0 INR Coagulation Comments Assessment Assessment A 74-year-old female who is noncompliant with multiple medical comorbidities presented to the ED in view of worsening shortness of breath, bilateral pedal edema and chronic ulcers. Patient is admitted for the management and evaluation of acute exacerbation of CHF. On 06/09/2025, vascular ultrasound reveals severe right peripheral arterial disease. Patient underwent AICD + ppm placement on 06/12/25. Plan Plan Acute on chronic heart failure with reduced ejection fraction, EF: 20-25% Chronically elevated proBNP ACC/AHA Stage D NYHA: Class IV Medication noncompliance Chronically elevated proBNP Echo in March,: EF: 20 25%, overall systolic function severely reduced, Multisegmental wall motion abnormalities.RVSP is estimated at 64 mmHg. Continue IV Lasix 20 mg IV b.i.d. titrate Lasix as required Strict Is&Os, fluid restriction: 1.5 L Continue Coreg 3.125 mg p.o. b.i.d., losartan 25 mg p.o. daily, spironolactone 12.5 mg p.o. daily. Discontinue Jardiance 10 mg p.o. daily due to underlying ERNESTO and soft blood pressure On 06/09, Telemetry showed a flutter with CVR, V paced rhythm Severe peripheral arterial disease Left lower extremity chronic nonhealing wound No acute occlusive symptoms like cyanosis, pain at rest Continue wound care Arterial ultrasound showed severe right lower extremity PAD. EMILIA 0.39. Left lower extremity could not be evaluated Dr. Mckeon ordered MRA abdomen and pelvis, follow up. Repeat procalcitonin normal Wound cultures positive for Staph aureus, Pseudomonas aeruginosa-started on IV ciprofloxacin (day 1) and IV vancomycin pharmacy to dose (day 1) Continue aspirin 81 mg p.o. daily and Lipitor 40 mg p.o. daily Prerenal ERNESTO probably secondary to renal tubular stasis/cardiorenal syndrome, improving Elevated BUN and creatinine, up trending Continue to monitor BMP Continue IV Lasix as required AFib s/p ppm & AICD on 06/12/25 [id number]: 5 Telemetry showed a flutter with CVR, V paced rhythm Continue Eliquis 5 mg p.o. b.i.d. Upgraded of pacemaker to biventricular device by Dr. 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 Soft blood pressure of left upper extremity Benefits with outpatient cardiology follow up Hypothyroidism TSH in April: 0.23 Continue levothyroxine 125 mcg once daily Alcohol use disorder Alcohol withdrawal Mild alcohol withdrawal protocol MVT, thiamine, folic acid advisory services associate Marijuana use disorder U tox positive for marijuana advisory services associate Code status: Full code Diet: Heart healthy DVT prophylaxis: Heparin Disposition: S/p procedure today. Probable discharge in a day or two. Emma Aguayo MD Internal Medicine, PGY 2 Date of Service: Jun 12, 2025 Billing Provider: FRANCY CANO MD, SIVA, RES Jun 12, 2025 17:05
[2025-06-12] MEDS: JUVEN Smoothie Arginine/Glut./Ca2+Bmb (Juven 19.3pkt) 240ml cup PO SCH (17:30)
[2025-06-13] VITALS (8 sets, daily range): BP systolic 130–150; BP diastolic 54–78; PULSE 60–68; RESP 11–16; TEMP 97.2–98.1; O2SAT 60–98
[2025-06-13] MEDS: VANCOMYCIN 750MG IV in NS 250 ML IV SCH (09:30)
--- NOTE | 2025-06-13 10:44 | PROGRESS NOTE ---
Progress Note Cardiology Providers to CC ~ Subjective Subjective Pt is about to ambulate with PT assist. Objective Vitals vss Result Diagram: 06/12/25 0537 06/12/25 0537 Objective L pacer site wound is dry and not swollen. I am aware of here R leg PAD. I ask just this AM if she wants the problem addressed but she prefers to wait several weeks. Since she had iodiated contrast yesterday ( coronary venography, waiting a few weeks is very reasonable. Coagulation Studies Laboratory Tests Test 06/11/25 07:06 06/12/25 05:37 Activated Partial Thromboplast Time 25 SECONDS (22-32) Prothrombin Time 10.7 SECONDS (9.0-12.0) INR International Normalized Ratio 1.0 INR Coagulation Comments Problem\Assessment\Plan Additional Plan I am signing off, now.. Have her see me in my office in 10-14 days for wound check and f/u on her PAD. ETIENNE TAMEZ DO Jun 13, 2025 10:44
[2025-06-13] MEDS ORDERED: THIA500T PO (13:06)
[2025-06-13] MEDS ORDERED: MULT-25 PO (13:06)
[2025-06-13] MEDS ORDERED: FURO20TA4 PO (13:06)
[2025-06-13] MEDS ORDERED: CIPR-458 PO (13:06)
[2025-06-13] MEDS ORDERED: APIX5TAB3 PO (13:06)
[2025-06-13] MEDS ORDERED: COR3.125T PO (13:06)
[2025-06-13] MEDS ORDERED: LACT1CAP26 PO (13:06)
[2025-06-13] MEDS ORDERED: NOR5T PO (13:06)
[2025-06-13] MEDS ORDERED: FOLI1TAB27 PO (13:06)
[2025-06-13] MEDS ORDERED: SPIR25TA PO (13:06)
[2025-06-13] MEDS ORDERED: ATOR20TA66 PO (13:06)
[2025-06-13] MEDS ORDERED: LINE600T14 PO (13:06)
[2025-06-13] MEDS ORDERED: ASPI-1071 PO (13:06)
[2025-06-13 13:13] LABS: CREATININE 1.35 MG/DL (0.40-0.90); TOTAL CARBON DIOXIDE 27.5 MMOL/L (24-32); eCRCL 37 ML/MIN; eGFR 38 ML/MIN
--- NOTE | 2025-06-13 15:44 | DISCHARGE SUMMARY-Residence ---
Discharge Summary Providers to CC Resident Creating Document: EMMA BRIGGS RES CC: FRANCY ACNO MD ~ Discharge Summary Admission Diagnosis: Acute CHF exacerbation Hospital Course DATE OF ADMISSION: 06/07/25 DATE OF DISCHARGE: 06/13/25 Discharge Diagnosis\Comment: Acute on chronic heart failure with reduced ejection fraction, EF: 20-25% Chronically elevated proBNP Severe peripheral arterial disease Left lower extremity chronic nonhealing wound Prerenal ERNESTO probably secondary to renal tubular stasis/cardiorenal syndrome, improving AFib s/p ppm & AICD on 06/12/25 Possible subclavian steal syndrome Hypertension and right upper extremity Hypothyroidism Alcohol use disorder Alcohol withdrawal Marijuana use disorder Operations\Procedures: ppm biventricular device placement Consultants: Dr. Sanchez (Solid Waste Manager) Complications: None Condition on DC: Stable New Medications: Ciprofloxacin HCl (Ciprofloxacin HCl) 500 Mg Tab 1 TAB PO BID for 12 Days, #24 TAB Lactobacillus Rhamnosus (Culturelle) 10 Billion Cell Capsule 1 CAP PO DAILY for 30 Days, #30 CAP 0 Refills Linezolid (Linezolid) 600 Mg Tablet 1 TAB PO Q12H for 13 Days, #26 TAB 0 Refills Amlodipine Besylate (Amlodipine Besylate) 5 Mg Tablet 10 MG PO DAILY for 30 Days, #30 TAB Apixaban (Eliquis) 5 Mg Tablet 5 MG PO BID for 30 Days, #60 TAB Aspirin (Ecotrin*) 81 Mg Tablet.dr 1 TAB PO DAILY for 30 Days, #30 TAB.SR Atorvastatin Calcium (Atorvastatin Calcium) 20 Mg Tablet 40 MG PO DAILY for 30 Days, #30 TAB Carvedilol (Carvedilol) 3.125 Mg Tablet 3.125 MG PO BID for 30 Days, #60 TAB Folic Acid* (Folic Acid*) Y Tab 1 MG PO DAILY for 30 Days, #30 TAB Multivitamin with Folic Acid (Thera Tablet) 400 Mcg Tablet 1 EACH PO Q24H for 30 Days, #30 TAB Spironolactone (Aldactone) 25 Mg Tablet 12.5 MG PO DAILY@0830 for 30 Days, #15 TAB Thiamine HCl (Thiamine HCl) 500 Mg Tablet 500 MG PO DAILY for 30 Days, #30 TAB Changed Medications: Furosemide (Furosemide) 20 Mg Tablet 1 TAB PO DAILY for 30 Days, #30 TAB 0 Refills (Changed from: Furosemide 40 Mg Tablet 1 Tab PO BID) Continued Medications: Levothyroxine Sodium* (Synthroid*) 88 Mcg Tablet 100 MCG PO DAILY for 30 Days, #30 TAB Losartan Potassium* (Cozaar*) 25 Mg Tablet 25 MG PO BID for 30 Days, #30 TAB Discharge Summary: A 74-year-old noncompliant female with multiple medical comorbidities presented to the ED in view of worsening shortness of breaths, bilateral pedal edema and chronic or cells. On further investigations and clinical examination patient was found to be in acute heart failure with echo showing decreased ejection fraction from prior echo about two months ago-dropped down to 20-25% patient was adequately treated with diuretics fluid restriction and started on GDM T. Jardiance was held in view of worsening kidney function. On further investigations patient was found to have subclavian stenosis for which internal controls specialist Dr. Sanchez was consulted. Simultaneously, Dr. Sanchez identified with the patient requires both pacemaker and biventricular device, on the contrary patient only has pacemaker which was upgraded on 06/12/2025. While examining the patient patient had right lower extremity peripheral arterial disease that would be managed outpatient Dr. Sanchez after discussions with the patient who preferred the same. Patient's wound cultures revealed Pseudomonas and MRSA requiring antibiotic management and isolation in the hospital. Patient is physically and clinically stable for discharge. Patient's appeal for discharge was not approved. Patient denied to go to the [facility] or did not give us any prove that she was going to the hotel. Patient was adamant to go back to her car. Physical examination at discharge: General: Drowsy and sleeping HEENT: PERRLA, no icterus, pallor, lymphadenopathy, carotid bruit Respiratory system: Bilateral vesicular breath sounds heard, bilateral basal Creps present (improved), infraclavicular subcutaneous pacemaker present CVS: S1-S2 heard, no murmurs/rubs/gallop GI: Soft, nontender, no organomegaly, no guarding/rigidity, bowel sounds present Neuro: No focal neurological deficits present Extremities: Erythematous, 2+ pitting edema (improving), multiple shallow ulcers present on bilateral lower extremities Skin: Warm and dry Labs at discharge: WBC: 5, H/H: 10.8/33.5, platelet count: 318 Sodium: 133, potassium: 4.7, BUN: 31, creatinine: 1.35 Imaging Echo: Mild concentric hypertrophy. Multisegmental wall motion abnormalities present. LVEF is approximately 25-30%.RVSP of 53 mmHg. Vascular ultrasound: Severe right peripheral arterial disease. Chest x-ray: HCT: No acute intracranial abnormality seen Lower extremity CT:No abnormal osseous erosion, lucency, sclerosis to suggest osteomyelitis. Discharge medications can be found above and patient can be discharged to her previously living situation per PT with the following recommendations: Follow up with primary care within two weeks of discharge. Follow up with Dr. Sanchez (cardiology) within two weeks of discharge.[id number] [place] [address]. Contact number: Please do not miss your wound care appointments. We started you on GDM T for heart failure and sending you and Lasix 20 mg p.o. pills please maintain compliance. Repeat CBC with differential and BMP at the time of visit with primary care Please measure your weight daily and increase Lasix dose or decrease based on increase or decrease in weight respectively. We started you on GDM T like carvedilol, spironolactone and losartan for your heart failure. Please maintain compliance We did not start you on Jardiance which also helps with your heart failure in view of your kidney function, consult with your internal controls specialist/PCP for re- evaluation Strict alcohol and methamphetamine avoidance Per advice of Dr. Sanchez, you require surgery for your right lower extremity PAD, follow up without avoidance. Return to ER or call 911 in view of palpitations, shortness of breaths. Please contact [facility] at the number you were given and change your insurance to straight Medicare A&B. Outpatient wound care appointment - Wednesday06/18/25 at 1:30pm. [facility] wound care. [phone] *Problems/Diagnosis: (1) Heart failure with reduced ejection fraction (HFrEF, <= 40%) (2) CHF exacerbation Status: Resolved Total Time Spent on D/C: > 30 Minutes Date of Service: Jun 14, 2025 Billing Provider: FRANCY CANO MD, SIVA, RES Jun 13, 2025 15:24
--- NOTE | 2025-06-13 15:51 | PROGRESS NOTE- Residence ---
Progress Note - Resident Providers to CC Resident Creating Document: EMMA AGUAYO RES CC: FRANCY CANO MD ~ Antibiotic Timeout Antibiotic Ordered?: Yes Subjective Patient is seen and examined today. Patient is doing well after the pacemaker placement, no signs of erythema infection at the site of pacemaker placement but has tenderness. Patient has chronic ulcer seems to be healing. Objective Vital Signs Date Time Temp Pulse Resp B/P (MAP) Pulse Ox O2 Delivery O2 Flow Rate FiO2 06/13/25 09:13 60 06/13/25 08:00 13 96 Room Air 06/13/25 06:00 98.1 130/78 (95) 06/13/25 02:00 2.0 Result Diagram: 06/12/25 0537 06/13/25 1228 General: Drowsy and sleeping HEENT: PERRLA, no icterus, pallor, lymphadenopathy, carotid bruit Respiratory system: Bilateral vesicular breath sounds heard, bilateral basal Creps present (improved), infraclavicular subcutaneous pacemaker present CVS: S1-S2 heard, no murmurs/rubs/gallop GI: Soft, nontender, no organomegaly, no guarding/rigidity, bowel sounds present Neuro: No focal neurological deficits present Extremities: Erythematous, 1+ pitting edema (improving), multiple shallow ulcers present on bilateral lower extremities (improving) Skin: Warm and dry Coagulation Studies Laboratory Tests Test 06/11/25 07:06 06/12/25 05:37 Activated Partial Thromboplast Time 25 SECONDS (22-32) Prothrombin Time 10.7 SECONDS (9.0-12.0) INR International Normalized Ratio 1.0 INR Coagulation Comments Assessment Assessment A 74-year-old female who is noncompliant with multiple medical comorbidities presented to the ED in view of worsening shortness of breath, bilateral pedal edema and chronic ulcers. Patient is admitted for the management and evaluation of acute exacerbation of CHF. On 06/09/2025, vascular ultrasound reveals severe right peripheral arterial disease. Patient underwent AICD + ppm placement on 06/12/25. Plan Plan Acute on chronic heart failure with reduced ejection fraction, EF: 20-25% Chronically elevated proBNP ACC/AHA Stage D NYHA: Class IV Medication noncompliance Echo in March,: EF: 20-25%, overall systolic function severely reduced, Multisegmental wall motion abnormalities.RVSP is estimated at 64 mmHg. Continue IV Lasix 20 mg IV b.i.d. titrate Lasix as required Strict Is&Os, fluid restriction: 1.5 L Continue Coreg 3.125 mg p.o. b.i.d., losartan 25 mg p.o. daily, spironolactone 12.5 mg p.o. daily. Discontinue Jardiance 10 mg p.o. daily due to underlying ERNESTO and soft blood pressure On 06/09, Telemetry showed a flutter with CVR, V paced rhythm Severe peripheral arterial disease Left lower extremity chronic nonhealing wound No acute occlusive symptoms like cyanosis, pain at rest Continue wound care Arterial ultrasound showed severe right lower extremity PAD. EMILIA 0.39. Left lower extremity could not be evaluated Dr. Mckeon ordered MRA abdomen and pelvis, follow up. Repeat procalcitonin normal Wound cultures positive for Staph aureus, Pseudomonas aeruginosa-started on IV ciprofloxacin (day 1) and IV vancomycin pharmacy to dose (day 2) Continue aspirin 81 mg p.o. daily and Lipitor [address] Sanchez recommended outpatient management per wishes of the patient Prerenal ERNESTO probably secondary to renal tubular stasis/cardiorenal syndrome, improving Elevated BUN and creatinine, downtrending Continue to monitor BMP Continue IV Lasix as required AFib s/p ppm & AICD on 06/12/25 [id number]: 5 Telemetry showed a flutter with CVR, V paced rhythm Continue Eliquis 5 mg p.o. b.i.d. Upgraded of pacemaker to biventricular device by Dr. 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 Emma Aguayo MD Internal Medicine, PGY 2 Date of Service: Jun 13, 2025 Billing Provider: FRANCY CANO MD, SIVA, RES Jun 13, 2025 15:51
[2025-06-13 17:06] LABS: MEAN PLATELET VOLUME 7.7 FL (7.4-10.4); RED CELL DISTRIBUTION WIDTH 24.2 % (11.5-14.5)
[2025-06-13 20:49] LABS: CREATININE 1.39 MG/DL (0.40-0.90); TOTAL CARBON DIOXIDE 30.2 MMOL/L (24-32); eCRCL 36 ML/MIN; eGFR 37 ML/MIN
[2025-06-14 02:00] VITALS: BP 126/59; PULSE 60; RESP 16; TEMP 98.2; O2SAT 100
[2025-06-14 06:00] VITALS: BP 140/68; PULSE 60; RESP 18; TEMP 97.2; O2SAT 92
[2025-06-14 07:00] VITALS: RESP 18; O2SAT 92
[2025-06-14 07:00] LABS: CREATININE 1.32 MG/DL (0.40-0.90); TOTAL CARBON DIOXIDE 28.0 MMOL/L (24-32); eCRCL 38 ML/MIN; eGFR 39 ML/MIN
[2025-06-14 11:00] VITALS: BP 129/58; PULSE 60; RESP 16; TEMP 97.6; O2SAT 100
[2025-06-14 11:27] LABS: MEAN PLATELET VOLUME 7.8 FL (7.4-10.4); RED CELL DISTRIBUTION WIDTH 23.2 % (11.5-14.5)
[2025-06-16] MEDS ORDERED: VANCOMYCIN LEVEL IV ONE (08:30)
== END 2025-06-14 16:19 | disposition home or self-care (01) | DRG 242 ==
LOC: ER 15:38 → ED HOLD 17:07 → PCU 3S 19:05
PROVIDERS: ADMIT Family Medicine; ATTEND Family Medicine
PROC: 0JPT0PZ Removal of Cardiac Rhythm Related Device from Trunk Subcutaneous Tissue and Fascia, Open Approach (ICD-10-PCS; principal; 2025-06-12)
PROC: 0JH607Z Insertion of Cardiac Resynchronization Pacemaker Pulse Generator into Chest Subcutaneous Tissue and Fascia, Open Approach (ICD-10-PCS; 2025-06-12)
PROC: 02HL3JZ Insertion of Pacemaker Lead into Left Ventricle, Percutaneous Approach (ICD-10-PCS; 2025-06-12)
DX: I48.91 Unspecified atrial fibrillation (principal); I50.23 Acute on chronic systolic (congestive) heart failure; N17.0 Acute kidney failure with tubular necrosis; Q21.10 Atrial septal defect, unspecified; G45.8 Other transient cerebral ischemic attacks and related syndromes; F10.939 Alcohol use, unspecified with withdrawal, unspecified; I11.0 Hypertensive heart disease with heart failure; F12.90 Cannabis use, unspecified, uncomplicated; I42.9 Cardiomyopathy, unspecified; E03.9 Hypothyroidism, unspecified; I73.9 Peripheral vascular disease, unspecified; Z88.1 Allergy status to other antibiotic agents; Z91.030 Bee allergy status; Z91.148 Patient's other noncompliance with medication regimen for other reason
CPT/HCPCS: 33221; 33225; 36415; 70450; 71045; 73700; 80048; 80053; 80305; 80320; 81003; 82565; 82948; 83605; 83735; 83880; 84132; 84145; 84484; 85008; 85025; 85610; 85651; 85730; 86140; 87040; 87070; 87075; 87077; 87081; 87186; 93005; 93308; 93922; 97116; 97161; 97164; 97530; 97535; 99152; 99153; 99285; A4565; A4615; A6212; A6213; A6250; A6402; A6449; C1769; C1900; C2621; G0378; J0690; J0744; J1644; J1938; J2250; J2270; J3010; J3373; J3411; J3490; J7030; J7040; J7050; J7070; Q9967